=== PATIENT | male | born 1985 | race Caucasian/White ===

== ENCOUNTER → 2017-03-02 | Outpatient (CLI) | payer OTHER ==
--- NOTE | 2017-03-03 01:43 | REP ---
Clinical: Trauma. Fracture fourth digit. Technique: AP, lateral, bilateral oblique views of the right hand. Findings: Findings suggest old healed fracture of the fourth metacarpal bone. No acute fracture dislocation appreciated. Surrounding soft tissues are grossly unremarkable. No subcutaneous emphysema or radiodense foreign body. Impression: Old healed fractures to the fourth metacarpal bone. No acute fracture or dislocation. Signed by Eleno Anders MD 03/03/2017 01:35 A
== END ==
LOC: M WUC 09:25
PROVIDERS: ATTEND Physician Assistant Medical
DX: S62.345D Nondisplaced fracture of base of fourth metacarpal bone, left hand, subsequent encounter for fracture with routine healing (principal); X58.XXXD Exposure to other specified factors, subsequent encounter; Y93.9 Activity, unspecified; Y92.9 Unspecified place or not applicable; Y99.8 Other external cause status

== ENCOUNTER → 2018-03-17 | Outpatient (REF) | payer MEDICAID ==
[2018-03-17 17:26] LABS: PROSTATIC SPECIFIC AG MONITOR 0.36 NG/ML (< 4.0)
[2018-03-17 17:32] LABS: TESTOSTERONE 234 NG/DL (241-827)
== END ==
LOC: M LAB REF 16:35
DX: R79.89 Other specified abnormal findings of blood chemistry (principal)

== ENCOUNTER → 2018-04-29 | Outpatient (CLI) | payer MEDICAID | LOC: M OUTALCOH 08:21 | DX: Z03.89 Encounter for observation for other suspected diseases and conditions ruled out (principal) ==

== ENCOUNTER → 2018-06-08 | Outpatient (CLI) | payer MEDICAID | LOC: M RAD 12:13 | DX: M25.541 Pain in joints of right hand (principal); M85.441 Solitary bone cyst, right hand | CPT/HCPCS: 73100 ==

== ENCOUNTER → 2018-07-15 | Outpatient (CLI) | payer MEDICAID | LOC: M OUTALCOH 12:54 | DX: Z13.39 Encounter for screening examination for other mental health and behavioral disorders (principal) ==

== ENCOUNTER 2018-07-20 13:00 | Outpatient (RCR) | payer MEDICAID | END 2018-08-12 | LOC: M OUTALCOH 07-26 10:00 | DX: F15.20 Other stimulant dependence, uncomplicated (principal); F10.20 Alcohol dependence, uncomplicated ==

== ENCOUNTER → 2018-09-12 | Outpatient (RCR) | payer MEDICAID | LOC: M OUTALCOH 08-17 10:59 | PROVIDERS: ATTEND Psychiatry & Neurology Psychiatry | DX: F15.20 Other stimulant dependence, uncomplicated (principal); F10.20 Alcohol dependence, uncomplicated ==

== ENCOUNTER 2018-10-12 15:00 | Outpatient (RCR) | payer MEDICAID | END 2018-10-13 | LOC: M OUTALCOH 15:00 | PROVIDERS: ATTEND Psychiatry & Neurology Psychiatry | DX: F15.20 Other stimulant dependence, uncomplicated (principal); F10.20 Alcohol dependence, uncomplicated ==

== ENCOUNTER 2018-11-09 15:00 | Outpatient (RCR) | payer MEDICAID | END 2018-11-10 | LOC: M OUTALCOH 15:00 | PROVIDERS: ATTEND Psychiatry & Neurology Psychiatry | DX: F15.20 Other stimulant dependence, uncomplicated (principal); F10.20 Alcohol dependence, uncomplicated ==

== ENCOUNTER → 2018-11-09 | Outpatient (REF) | payer MEDICAID ==
[2018-11-09 19:16] LABS: BASO % 0.3 % (0.0-1.0); EOS # 0.2 10^3/uL (0.0-0.50); EOS % 2.5 % (0.0-3.0); HEMATOCRIT 41.8 % (42.0-52.0); HEMOGLOBIN 14.5 g/dl (13.5-17.5); LYMPH # 2.8 10^3/uL (1.5-4.5); MEAN CORPUSCULAR HEMOGLOBIN 28.2 pg (27.0-33.0); MEAN CORPUSCULAR HGB CONC 34.7 g/dl (32.0-36.5); MEAN CORPUSCULAR VOLUME 81.2 fl (80.0-96.0); MONO # 0.6 10^3/uL (0.0-0.8); MONO % 8.1 % (0.0-5.0); NEUTROPHILS # 3.7 10^3/uL (1.8-7.7); NEUTROPHILS % 50.8 % (36.0-66.0); PLATELET COUNT, AUTOMATED 280 10^3/uL (150-450); RED BLOOD COUNT 5.15 10^6/uL (4.30-6.10); WHITE BLOOD COUNT 7.3 10^3/uL (4.0-10.0)
[2018-11-09 19:34] LABS: ALBUMIN 4.3 GM/DL (3.2-5.2); ALT/SGPT 41 U/L (12-78); BILIRUBIN,TOTAL 0.5 MG/DL (0.2-1.0); BLOOD UREA NITROGEN 10 MG/DL (7-18); CALCIUM LEVEL 8.7 MG/DL (8.5-10.1); CARBON DIOXIDE LEVEL 25 MEQ/L (21-32); CHLORIDE LEVEL 103 MEQ/L (98-107); CREATININE FOR GFR 1.06 MG/DL (0.70-1.30); GLOMERULAR FILTRATION RATE > 60.0 (>60); GLUCOSE, FASTING 94 MG/DL (70-100); PROSTATIC SPECIFIC AG MONITOR 0.56 NG/ML (< 4.00); SODIUM LEVEL 136 MEQ/L (136-145); TOTAL PROTEIN 7.7 GM/DL (6.4-8.2)
[2018-11-09 20:20] LABS: HIV 1&2 SCREEN CENTAUR NEGATIVE (NEGATIVE)
[2018-11-09 22:44] LABS: CHLAMYDIA DNA AMPLIFICATION NEGATIVE (NEGATIVE); GC DNA AMPLIFICATION NEGATIVE (NEGATIVE)
[2018-11-11 09:56] LABS: HEPATITIS B SURFACE ANTIBODY POSITIVE (POSITIVE)
[2018-11-11 10:07] LABS: HEPATITIS B SURFACE ANTIGEN NEGATIVE (NEGATIVE)
[2018-11-11 10:39] LABS: HEPATITIS C VIRUS ABY INDEX > 11.0 INDEX (<0.8)
[2018-11-14 14:10] LABS: HEPATITIS C QUANTITATION HCV Not Detected IU/mL (.)
== END ==
LOC: M LAB REF 18:34
PROVIDERS: ATTEND Family Medicine Addiction Medicine
DX: E29.1 Testicular hypofunction (principal); Z20.2 Contact with and (suspected) exposure to infections with a predominantly sexual mode of transmission

== ENCOUNTER 2018-12-07 11:00 | Outpatient (RCR) | payer MEDICAID | END 2018-12-11 | LOC: M OUTALCOH 11:00 | PROVIDERS: ATTEND Psychiatry & Neurology Psychiatry | DX: F15.20 Other stimulant dependence, uncomplicated (principal); F10.20 Alcohol dependence, uncomplicated ==

== ENCOUNTER 2019-01-09 14:00 | Outpatient (RCR) | payer MEDICAID | END 2019-01-10 | LOC: M OUTALCOH 14:00 | PROVIDERS: ATTEND Psychiatry & Neurology Psychiatry | DX: F15.20 Other stimulant dependence, uncomplicated (principal); F10.20 Alcohol dependence, uncomplicated ==

== ENCOUNTER 2019-01-24 08:00 | Outpatient (RCR) | payer MEDICAID | END 2019-02-10 | LOC: M OUTALCOH 08:00 | PROVIDERS: ATTEND Psychiatry & Neurology Psychiatry | DX: F15.20 Other stimulant dependence, uncomplicated (principal); F10.20 Alcohol dependence, uncomplicated ==

== ENCOUNTER → 2019-09-30 | Outpatient (REF) | payer MEDICAID ==
[2019-10-02 11:20] LABS: CHLAMYDIA DNA AMPLIFICATION NEGATIVE (NEGATIVE); GC DNA AMPLIFICATION POSITIVE (NEGATIVE)
== END ==
LOC: M LAB REF 09:39
PROVIDERS: ATTEND Physician Assistant
DX: Z72.51 High risk heterosexual behavior (principal)

== ENCOUNTER 2020-01-13 01:03 | Inpatient (IN) | payer MEDICAID, SELFPAY ==
[~2020-01-13] VITALS: Ht 175.3 cm; Wt 98.1 kg
[2020-01-13] VITALS (8 sets, daily range): BP systolic 125–143; BP diastolic 62–76
[2020-01-13] MEDS ORDERED: NALOXONE 2MG/2ML SYRINGE (J2310 PER 1MG) As Ordered ONE ×2 (01:11→01:13)
[2020-01-13] MEDS ORDERED: NALOXONE 2MG/2ML SYRINGE (J2310 PER 1MG) IV ONE (01:15)
[2020-01-13] MEDS ORDERED: NS 1,000 ML IV ONE (01:15)
[2020-01-13] MEDS ORDERED: NALOXONE 2MG/2ML SYRINGE (J2310 PER 1MG) IM ONE (01:15)
[2020-01-13 01:53] LABS: VENOUS BASE EXCESS -0.6 (-2.0-2.0); VENOUS HCO3 27.4 MEQ/L (23.0-27.0); VENOUS O2 SATURATION 46.3 % (60.0-80.0); VENOUS PARTIAL PRESSURE CO2 58.7 mmHg (38.0-50.0); VENOUS PARTIAL PRESSURE O2 27.1 mmHg (30.0-50.0); VENOUS PH 7.287 UNITS (7.330-7.430); VENOUS STANDARD HCO3 22.7 MEQ/L; VENOUS TOTAL CO2 29.2 MEQ/L (24.0-28.0)
[2020-01-13 01:54] LABS: BASO % 0.2 % (0.0-1.0); EOS # 0.3 10^3/uL (0.0-0.5); EOS % 3.4 % (0.0-3.0); HEMATOCRIT 45.5 % (42.0-52.0); HEMOGLOBIN 15.3 g/dl (13.5-17.5); LYMPH # 1.8 10^3/uL (1.5-5.0); LYMPH % 20.4 % (24.0-44.0); MEAN CORPUSCULAR HEMOGLOBIN 28.3 pg (27.0-33.0); MEAN CORPUSCULAR HGB CONC 33.6 g/dl (32.0-36.5); MEAN CORPUSCULAR VOLUME 84.3 fl (80.0-96.0); MONO # 0.5 10^3/uL (0.0-0.8); NEUTROPHILS # 6.1 10^3/uL (1.5-8.5); NEUTROPHILS % 69.8 % (36.0-66.0); PLATELET COUNT, AUTOMATED 286 10^3/uL (150-450); WHITE BLOOD COUNT 8.7 10^3/uL (4.0-10.0)
[2020-01-13 02:38] LABS: ACETAMINOPHEN LEVEL < 2.0 UG/ML (10.0-30.0); ALBUMIN 3.8 GM/DL (3.2-5.2); ALT/SGPT 30 U/L (12-78); BILIRUBIN,DIRECT 0.1 MG/DL (0.0-0.2); BILIRUBIN,TOTAL 0.4 MG/DL (0.2-1.0); BLOOD UREA NITROGEN 10 MG/DL (7-18); CALCIUM LEVEL 8.2 MG/DL (8.5-10.1); CARBON DIOXIDE LEVEL 30 MEQ/L (21-32); CHLORIDE LEVEL 107 MEQ/L (98-107); CPK CREATINE PHOSPHOKINASE 262 U/L (39-308); CREATININE FOR GFR 1.14 MG/DL (0.70-1.30); ETHYL ALCOHOL (ETHANOL) < 0.003 % (0.000-0.010); GLOMERULAR FILTRATION RATE > 60.0 (>60); GLUCOSE, FASTING 62 MG/DL (70-100); SALICYLATE LEVEL < 1.7 MG/DL (5.0-30.0); SODIUM LEVEL 142 MEQ/L (136-145); TOTAL PROTEIN 7.1 GM/DL (6.4-8.2)
[2020-01-13 04:15] LABS: AMPHETAMINES LEVEL URINE POSITIVE (NEGATIVE); BARBITURATES URINE NEGATIVE (NEGATIVE); BENZODIAZEPINES URINE NEGATIVE (NEGATIVE); CANNABINOIDS URINE POSITIVE (NEGATIVE); COCAINE METABOLITE URINE POSITIVE (NEGATIVE); METHADONE URINE NEGATIVE (NEGATIVE); OPIATES URINE POSITIVE (NEGATIVE); PHENCYCLIDINE URINE NEGATIVE (NEGATIVE)
[2020-01-13] MEDS ORDERED: ACETAMINOPHEN TAB 650MG DOSE (2X325MG) PO PRN (04:45)
[2020-01-13] MEDS ORDERED: MOM 30ML SUSPENSION UDC PO PRN (04:45)
[2020-01-13] MEDS ORDERED: LORazepam 2 MG TAB PO PRN (04:45)
[2020-01-13] MEDS ORDERED: NS 1,000 ML IV SCH (04:45)
[2020-01-13] MEDS ORDERED: NALOXONE INJ 0.4MG/1ML VIAL (J2310 PER 1MG) IV PRN (04:45)
[2020-01-13] MEDS ORDERED: GLUCOSE 4GM CHEW TABLET PO PRN (05:00)
[2020-01-13] MEDS ORDERED: DEXTROSE 50% 50 ML SYRINGE IV PRN (05:00)
[2020-01-13] MEDS ORDERED: GLUCAGON INJ 1MG VIAL SC PRN (05:00)
[2020-01-13 05:23] LABS: HEMOGLOBIN A1c 5.8 %
[2020-01-13] MEDS ORDERED: NALOXONE INJ 0.4MG/1ML VIAL (J2310 PER 1MG) IV STA (05:43)
--- NOTE | 2020-01-13 05:56 | HPEPDOC ---
[facility] Medical History & Physical Date of Admission January 13, 2020 Date of Service: January 13, 2020 Attending Physician: RENEA BOYD MD History and Physical TIME OF SERVICE: 530AM CHIEF COMPLAINT: confusion HISTORY OF PRESENT ILLNESS: This is a 34 yr old M who was brought to the ER after a friend found him unresponsive after presumed IVDU; his friend gave him narcan; upon arrival in the ER he was alert and responsive but shortly thereafter became lethargic and hypoxic. Despite receiving additional 0.4mg of narcan (for a total of 1.2mg), in the ER the patient continues to have episodes lethargy and hypoxia requiring supplemental O2. At the time of my exam, he was intermittently arousable but kept on falling asleep. He was able to nod his head no when asked if he had any pain and nod urgency head yes when asked if he wanted to be intubated if he needed respiratory support and have CPR if heart stopped. REVIEW OF SYSTEMS: unobtainable bc of AMS PAST MEDICAL/ SURGICAL HISTORY: Per chart review Chronic Hypertension History of collapsed lungs as a SOCIAL HISTORY: + Tobacco, opiates, amphetamines, cocaine, cannabinoids FAMILY HISTORY: Unobtainable ALLERGIES: Please see below. HOME MEDICATIONS: Please see below. PHYSICAL EXAMINATION: Vital Signs Date Time Temp Pulse Resp B/P (MAP) Pulse Ox O2 Delivery O2 Flow Rate FiO2 01/13/20 01:07 99 16 165/100 82 Room Air 01/13/20 01:20 4.0 01/13/20 03:47 96.1 GEN: well-nourished / well developed/ NAD INTEGUMENT: not flushed/ diaphoretic/has tattoos HEENT: mucus membranes dry/ he has mild conjunctival injection CVS: RRR/NMRG LUNGS: Having episodes of hypopnea/inspiratory rhonchi in the left ABDOMEN: Contour (flat) / soft & not tender with palpation NEURO: Pupils are pinpoint PSYCH: Intermittently arousable LABORATORY DATA: Immature Granulocyte % (Auto) 0.2, Neutrophils (%) (Auto) 69.8H, Lymphocytes (%) (Auto) 20.4L, Monocytes (%) (Auto) 6.0H, Eosinophils (%) (Auto) 3.4H, Basophils (%) (Auto) 0.2, Neutrophils # (Auto) 6.1, Lymphocytes # (Auto) 1.8, Monocytes # (Auto) 0.5, Eosinophils # (Auto) 0.3, Basophils # (Auto) 0.0, Nucleated Red Blood Cells % (auto) 0.0, Blood Gas Bicarbonate Standard 22.7, Venous Blood pH 7.287L, Venous Blood Partial Pressure CO2 58.7H, Venous Blood Partial Pressure O2 27.1L, Venous Blood Total Carbon Dioxide 29.2H, Venous Blood HCO3 27.4H, Venous Blood Oxygen Saturation 46.3L, Venous Blood Base Excess -0.6, Anion Gap 5L, Glomerular Filtration Rate > 60.0, Estimated Mean Plasma Glucose 120H, Hemoglobin A1c 5.8, Calcium Level 8.2L, Total Bilirubin 0.4, Direct Bilirubin 0.1, Aspartate Amino Transf (AST/SGOT) 25, Alanine Aminotransferase (ALT/SGPT) 30, Alkaline Phosphatase 73, Total Creatine Kinase 262, Total Protein 7.1, Albumin 3.8, Albumin/Globulin Ratio 1.15, Thyroid Stimulating Hormone (TSH) 2.690, Salicylates Level < 1.7L, Acetaminophen Level < 2.0L, Ethyl Alcohol Level < 0.003 01/13/20 01:42: POC pH (Misc Panel) 7.345L, POC Base Excess (Misc Panel) -1.0, POC Saturated Percent O2 (Misc) 86L, POC pO2 (Misc Panel) 55.0L, POC pCO2 (Misc Panel) 45.3H, POC HCO3 (Misc Panel) 24.7, POC Total CO2 (Misc Panel) 26.0 01/13/20 03:43: Urine Opiates Screen POSITIVEH, Urine Methadone Screen NEGATIVE, Urine Barbiturates Screen NEGATIVE, Urine Phencyclidine Screen NEGATIVE, Urine Amphetamines Screen POSITIVEH, Urine Benzodiazepines Screen NEGATIVE, Urine Cocaine Metabolite Screen POSITIVEH, Urine Cannabinoids Screen POSITIVEH 01/13/20 05:07: Bedside Glucose (Misc Panel) 100 IMAGING: Chest x-ray appears to be a lesion on the left side of the chest, but the final read is pending MICROBIOLOGY: Please see below. ASSESSMENT: Mr. Koch is a 34-year-old with history of polysubstance abuse who will be admitted for management of polysubstance induced encephalopathy and hypoxia is possibly due to aspiration pneumonitis. PLAN: 1. Polysubstance induced encephalitis / Drug OD UDS + for opiates, amphetamines, cocaine, and cannabinoids Plan: Admit to PCU/neurochecks / narcan PRN for AMS associated w hypopnea 2. Hypoxia possibly 2/2 aspiration pneumonitis VBG showed PO2 of 21 Plan: Supplemental oxygen/continuous pulse oximetry/will hold off antibiotics for now/monitor for SIRS 3. Polysubstance abuse Plan: IV fluids/fall precautions/seizure precautions/Ativan per [facility] protocol 4. Hypoglycemia Cause TBD He has ketones in the urine. Plan: D5NS / f/u accuchecks 5. Obesity w BMI of 30.1 Complicates care. Plan: f/u A1C / the pt can f/u w his PCP for STOP BANG questionnaire, grade foreman consult DVT PROPHYLAXIS: SCDs DISPOSITION: Likely home after more than 2 midnight's stay Home Medications No Active Prescriptions or Reported Meds Allergies Coded Allergies: No Known Drug Allergies (Verified Allergy, Unknown, 01/13/20) A-FIB/CHADSVASC A-FIB History Current/History of A-Fib/PAF?: No Current PO Anticoag Therapy: No RENEA BOYD MD January 13, 2020 05:56
[2020-01-13] MEDS: D5W/0.9% SODIUM CHLORIDE 1,000 ML IV SCH ×3 (06:14→20:37)
--- NOTE | 2020-01-13 06:39 | ECGEPIP ---
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
--- NOTE | 2020-01-13 08:13 | REP ---
Clinical: Hypoxia. Overdose. Technique: Portable semiupright view of the chest. Findings: Diffuse primarily left-sided and right upper lobe alveolar infiltrates are appreciated. No effusion. No pneumothorax. Mediastinum and cardiac silhouette are normal. Skeletal structures are intact. Impression: Multifocal pneumonitis (left greater than right). Electronically Signed by Eleno Anders MD 01/13/2020 08:05 A
[2020-01-13] MEDS: THIAMINE 100 MG TAB PO SCH ×2 (08:59→20:37)
[2020-01-13] MEDS: MULTIVITAMINS/MINERALS THERAP 1 TAB PO SCH (08:59)
[2020-01-13] MEDS: FOLIC ACID 1 MG TAB PO SCH (08:59)
--- NOTE | 2020-01-13 15:22 | IPNPDOC ---
Text Note Date of Service The patient was seen on 01/13/20. NOTE Subjective: -Sleepy, reports feeling tired, no other complaints at this time Objective: GEN: NAD, well nourished, drowsy, awake on voice HEENT: NCAT, PERRLA, EOMI, MMM CVS: RRR, no mrg LUNGS: CTAB, no crackles, wheezing or rhonchi ABDOMEN: Normoactive, soft, NTND NEURO: AOx3, CN2-12 grossly intact, moving all extremities PSYCH: AOx3 LABORATORY DATA: reviewed IMAGING: CXR: Diffuse primarily left-sided and right upper lobe alveolar infiltrates are appreciated. No effusion. No pneumothorax. Mediastinum and cardiac silhouette are normal. Skeletal structures are intact. ASSESSMENT: Mr. Koch is a 34-year-old with history of polysubstance abuse who was admitted for management of polysubstance induced encephalopathy and hypoxemic respiratory failure 2/2 aspiration pneumonitis while encephalopathic. PLAN: 1. Polysubstance induced encephalopathy 2/2 multidrug overdose -Utox was positive for opiates, amphetamines, cocaine, and cannabinoids -Was admitted to the ICU with frequent neurochecks, narcan PRN for AMS associated w hypopnea, now resolved. 2.Hypoxemic respiratory failure 2/2 aspiration pneumonitis: resolved hypoxemia -Required supplemental O2, now weaned to room air -monitor for possibility of developing aspiration PNA 3. Polysubstance abuse -on IV fluids, D5NS, to DC once he tolerates a regular diet -fall precautions/seizure precautions/Ativan per CIWA protocol 4. Hypoglycemia: resolved -Had starvation ketosis on admission -dc accuchecks DVT PROPHYLAXIS: SCDs DISPOSITION: Transfer to [facility] [place], I+O [facility], I+O Laboratory Tests 01/13/20 01:25 Vital Signs Date Time Temp Pulse Resp B/P (MAP) Pulse Ox O2 Delivery O2 Flow Rate FiO2 01/13/20 14:07 142/67 (92) 01/13/20 10:01 69 94 Room Air 01/13/20 09:00 1.0 01/13/20 07:01 98.1 17 I&O- Last 24 Hours up to 6 AM 01/13/20 06:00 Intake Total 1000 ml Balance 1000 ml MARGARET MCKEON MD January 13, 2020 15:22
[2020-01-14 06:00] VITALS: BP_SYST 135; BP_SYST 136; BP_DIAS 73
[2020-01-14 06:58] LABS: HEMATOCRIT 39.3 % (42.0-52.0); HEMOGLOBIN 13.4 g/dl (13.5-17.5); MEAN CORPUSCULAR HEMOGLOBIN 28.8 pg (27.0-33.0); MEAN CORPUSCULAR HGB CONC 34.1 g/dl (32.0-36.5); MEAN CORPUSCULAR VOLUME 84.5 fl (80.0-96.0); PLATELET COUNT, AUTOMATED 248 10^3/uL (150-450); RED BLOOD COUNT 4.65 10^6/uL (4.30-6.10); WHITE BLOOD COUNT 7.5 10^3/uL (4.0-10.0)
[2020-01-14 07:03] LABS: BLOOD UREA NITROGEN 8 MG/DL (7-18); CALCIUM LEVEL 8.1 MG/DL (8.5-10.1); CARBON DIOXIDE LEVEL 26 MEQ/L (21-32); CHLORIDE LEVEL 107 MEQ/L (98-107); CREATININE FOR GFR 0.77 MG/DL (0.70-1.30); GLOMERULAR FILTRATION RATE > 60.0 (>60); GLUCOSE, FASTING 89 MG/DL (70-100); POTASSIUM SERUM 3.9 MEQ/L (3.5-5.1); SODIUM LEVEL 139 MEQ/L (136-145)
[2020-01-14] MEDS: D5W/0.9% SODIUM CHLORIDE 1,000 ML IV SCH ×2 (08:25→08:34)
[2020-01-14] MEDS: MULTIVITAMINS/MINERALS THERAP 1 TAB PO SCH (08:34)
[2020-01-14] MEDS: THIAMINE 100 MG TAB PO SCH (08:34)
[2020-01-14] MEDS: FOLIC ACID 1 MG TAB PO SCH (08:34)
--- NOTE | 2020-01-14 11:22 | DS.PDOC ---
Discharge Summary General Date of Admission January 13, 2020 at 04:40 Date of Discharge 01/14/2020 Attending Physician: MARGARET MCKEON MD Discharge Summary PROCEDURES PERFORMED DURING STAY: None ADMITTING DIAGNOSES: 1. Aspiration pneumonitis in the setting of multi-illicit drug intoxication DISCHARGE DIAGNOSES: 1. Aspiration pneumonitis 2. Hypoxemic respiratory failure 3. Accidental drug overdose 4. PSUD 5. History of chronic essential hypertension COMPLICATIONS/CHIEF COMPLAINT: Aspiration Pneumonitis. HISTORY OF PRESENT ILLNESS: 34 yr old M who was brought to the ER after a friend found him unresponsive after presumed IVDU and his friend administered him narcan. HOSPITAL COURSE: Upon arrival in the ER he was alert and responsive but shortly thereafter became lethargic and hypoxemic, and received a total of 1.2mg with continued lethargy and hypoxemia requiring supplemental O2. his workup was notable for urine toxicology screen that was positive for +opiates, amphetamines, cocaine, cannabinoids. He was admitted to the ICU for close monitoring with continuous pulse oximetry and telemetry and made NPO with imaging showing diffuse pneumonitis. By day 2 morning, he was more awake, asking for water and food, hypoxemia resolved and he was transferred to the floor where he continued to improve and was on CIWA protocol without evidence of withdrawal and reporting rare alcohol use with the last alcohol consumptions being weeks prior. He is now being discharged home with follow up with addiction medicine/behavioral health contacts to seek outpatient treatment and follow up at [facility] as well as PCP follow up. DISCHARGE MEDICATIONS: Please see below. ALLERGIES: Please see below. PHYSICAL EXAMINATION ON DISCHARGE: VITAL SIGNS: Please see below. GEN: NAD, well nourished, drowsy, awake on voice HEENT: NCAT, PERRLA, EOMI, MMM CVS: RRR, no mrg LUNGS: CTAB, no crackles, wheezing or rhonchi ABDOMEN: Normoactive, soft, NTND NEURO: AOx3, CN2-12 grossly intact, moving all extremities PSYCH: AOx3 LABORATORY DATA: reviewed IMAGING: CXR: Diffuse primarily left-sided and right upper lobe alveolar infiltrates are appreciated. No effusion. No pneumothorax. Mediastinum and cardiac silhouette are normal. Skeletal structures are intact. PROGNOSIS: Good with abstaining from multi-illicit drug use and enrolling in outpatient treatment ACTIVITY: As tolerated DIET: Regular DISCHARGE PLAN: Home with contacts to behavioral health and addiction clinic DISPOSITION: Home DISCHARGE INSTRUCTIONS: 1. Please refrain from taking illicit drugs as they have deleterious effects on your health. ITEMS TO FOLLOWUP ON ON OUTPATIENT: 1. PSUD DISCHARGE CONDITION: Stable TIME SPENT ON DISCHARGE: 34 minutes. Vital Signs/I&Os Vital Signs Date Time Temp Pulse Resp B/P (MAP) Pulse Ox O2 Delivery O2 Flow Rate FiO2 01/14/20 06:00 97.1 61 15 135/73 (93) 94 Room Air 01/13/20 09:00 1.0 I&O- Last 24 Hours up to 6 AM 01/14/20 06:00 Intake Total 3345 ml Output Total 450 ml Balance 2895 ml Laboratory Data Labs 24H Laboratory Tests 2 01/14/20 06:25: Nucleated Red Blood Cells % (auto) 0.0, Anion Gap 6L, Glomerular Filtration Rate > 60.0, Calcium Level 8.1L, Magnesium Level 2.0 CBC/BMP Laboratory Tests 01/14/20 06:25 Discharge Medications No Active Prescriptions or Reported Meds Allergies Coded Allergies: No Known Drug Allergies (Verified Allergy, Unknown, 01/13/20) MARGARET MCKEON MD January 14, 2020 09:38
== END 2020-01-14 12:15 | disposition home health service (06) | DRG 812 ==
LOC: EDBD 01:03 → M ED 01:03 → M ED INP 04:40 → ENRESERV 04:56 → M ICU 06:50 → M MSPAV 16:53
PROVIDERS: ADMIT Internal Medicine; ATTEND Internal Medicine
DX: T40.2X1A Poisoning by other opioids, accidental (unintentional), initial encounter (principal); J69.0 Pneumonitis due to inhalation of food and vomit; G92 Toxic encephalopathy; E88.89 Other specified metabolic disorders; T40.7X1A Poisoning by cannabis (derivatives), accidental (unintentional), initial encounter; T40.5X1A Poisoning by cocaine, accidental (unintentional), initial encounter; E66.9 Obesity, unspecified; E16.2 Hypoglycemia, unspecified; I10 Essential (primary) hypertension; F17.200 Nicotine dependence, unspecified, uncomplicated

== ENCOUNTER 2020-02-27 04:38 | Emergency (ER) | payer SELFPAY ==
[~2020-02-27] VITALS: Ht 175.3 cm; Wt 92.4 kg
[2020-02-27 04:40] VITALS: BP 171/101
[2020-02-27] MEDS ORDERED: NS 1,000 ML IV ONE (05:00)
[2020-02-27] MEDS ORDERED: ONDANSETRON 4MG/2ML VIAL As Ordered ONE (05:03)
[2020-02-27] MEDS ORDERED: ONDANSETRON 4MG/2ML VIAL IV ONE (05:15)
[2020-02-27 05:27] LABS: BASO % 0.2 % (0.0-1.0); EOS # 0.2 10^3/uL (0.0-0.5); EOS % 2.1 % (0.0-3.0); HEMATOCRIT 47.1 % (42.0-52.0); HEMOGLOBIN 15.3 g/dl (13.5-17.5); LYMPH # 2.8 10^3/uL (1.5-5.0); LYMPH % 29.2 % (24.0-44.0); MEAN CORPUSCULAR HEMOGLOBIN 27.7 pg (27.0-33.0); MEAN CORPUSCULAR HGB CONC 32.5 g/dl (32.0-36.5); MEAN CORPUSCULAR VOLUME 85.3 fl (80.0-96.0); MONO # 0.6 10^3/uL (0.0-0.8); MONO % 6.4 % (0.0-5.0); NEUTROPHILS # 5.9 10^3/uL (1.5-8.5); NEUTROPHILS % 61.5 % (36.0-66.0); PLATELET COUNT, AUTOMATED 274 10^3/uL (150-450); RED BLOOD COUNT 5.52 10^6/uL (4.30-6.10); WHITE BLOOD COUNT 9.7 10^3/uL (4.0-10.0)
[2020-02-27 05:58] LABS: ACETAMINOPHEN LEVEL < 2.0 UG/ML (10.0-30.0); ALBUMIN 3.9 GM/DL (3.2-5.2); ALT/SGPT 25 U/L (12-78); BILIRUBIN,DIRECT 0.1 MG/DL (0.0-0.2); BILIRUBIN,TOTAL 0.3 MG/DL (0.2-1.0); BLOOD UREA NITROGEN 15 MG/DL (7-18); CALCIUM LEVEL 8.6 MG/DL (8.5-10.1); CARBON DIOXIDE LEVEL 24 MEQ/L (21-32); CHLORIDE LEVEL 108 MEQ/L (98-107); CPK CREATINE PHOSPHOKINASE 226 U/L (39-308); ETHYL ALCOHOL (ETHANOL) 0.003 % (0.000-0.010); GLOMERULAR FILTRATION RATE > 60.0 (>60); GLUCOSE, FASTING 94 MG/DL (70-100); POTASSIUM SERUM 4.2 MEQ/L (3.5-5.1); SALICYLATE LEVEL 2.3 MG/DL (5.0-30.0); SODIUM LEVEL 141 MEQ/L (136-145); TOTAL PROTEIN 7.5 GM/DL (6.4-8.2)
--- NOTE | 2020-02-27 06:38 | ECGEPIP ---
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
== END 2020-02-27 05:26 | disposition left against medical advice (07) ==
LOC: M ED 04:38
DX: F11.129 Opioid abuse with intoxication, unspecified (principal); F19.10 Other psychoactive substance abuse, uncomplicated; F17.200 Nicotine dependence, unspecified, uncomplicated
CPT/HCPCS: 80048; 80076; 82550; 84443; 85025; 93005; 93041; 94760; 96374; 99284; G0480; J2405

== ENCOUNTER → 2020-07-02 | Outpatient (CLI) | payer MEDICAID ==
[~2020-07-02] MED LIST: BENA25CA4 PO; CLON0.2D6 PO; CLON0.3T PO; PRED10TA2 PO
[2020-07-02 13:20] LABS: BASO % 0.2 % (0.0-1.0); EOS # 0.1 10^3/uL (0.0-0.5); EOS % 1.5 % (0.0-3.0); HEMOGLOBIN 14.2 g/dl (13.5-17.5); LYMPH # 2.2 10^3/uL (1.5-5.0); LYMPH % 26.6 % (24.0-44.0); MEAN CORPUSCULAR HEMOGLOBIN 26.9 pg (27.0-33.0); MEAN CORPUSCULAR VOLUME 81.6 fl (80.0-96.0); MONO # 0.6 10^3/uL (0.0-0.8); MONO % 6.7 % (0.0-5.0); NEUTROPHILS # 5.3 10^3/uL (1.5-8.5); NEUTROPHILS % 64.6 % (36.0-66.0); PLATELET COUNT, AUTOMATED 279 10^3/uL (150-450); RED BLOOD COUNT 5.27 10^6/uL (4.30-6.10); WHITE BLOOD COUNT 8.2 10^3/uL (4.0-10.0)
[2020-07-02 13:51] LABS: ALBUMIN 4.4 GM/DL (3.2-5.2); ALT/SGPT 69 U/L (12-78); BILIRUBIN,TOTAL 0.4 MG/DL (0.2-1.0); BLOOD UREA NITROGEN 18 MG/DL (7-18); CARBON DIOXIDE LEVEL 29 MEQ/L (21-32); CHLORIDE LEVEL 106 MEQ/L (98-107); CREATININE FOR GFR 1.16 MG/DL (0.70-1.30); GLOMERULAR FILTRATION RATE > 60.0 (>60); GLUCOSE, FASTING 100 MG/DL (70-100); POTASSIUM SERUM 4.1 MEQ/L (3.5-5.1); SODIUM LEVEL 139 MEQ/L (136-145); TOTAL PROTEIN 7.9 GM/DL (6.4-8.2)
[2020-07-02 13:53] LABS: APPEARANCE, URINE CLEAR (CLEAR); BACTERIA, URINE AUTO NEGATIVE (NEGATIVE); BILIRUBIN, URINE AUTO NEGATIVE (NEGATIVE); BLOOD, URINE BLOOD NEGATIVE (NEGATIVE); COLOR, URINE YELLOW (YELLOW); GLUCOSE, URINE (UA) AUTO NEGATIVE (NEGATIVE); KETONE, URINE AUTO NEGATIVE (NEGATIVE); LEUKOCYTE ESTERASE, URINE AUTO NEGATIVE (NEGATIVE); MUCUS, URINE SMALL (NEGATIVE); NITRITE, URINE AUTO NEGATIVE (NEGATIVE); PROTEIN, URINE AUTO NEGATIVE (NEGATIVE); RBC, URINE AUTO 3 /HPF (0-3); SPECIFIC GRAVITY URINE AUTO 1.024 (1.002-1.035); SQUAMOUS EPITHELIAL CELL UR AU 0 /HPF (0-6); UROBILINOGEN, URINE AUTO 0.2 mg/dL (0.0-2.0); WBC, URINE AUTO 0 /HPF (0-3)
[2020-07-02 14:01] LABS: TESTOSTERONE 329 NG/DL (241-827)
[2020-07-02 14:13] LABS: HEPATITIS B SURFACE ANTIGEN NEGATIVE (NEGATIVE)
[2020-07-02 14:40] LABS: HEPATITIS B CORE ANTIBODY IGM NEGATIVE (NEGATIVE)
[2020-07-02 14:42] LABS: HEPATITIS A ANTIBODY IGM NEGATIVE (NEGATIVE)
[2020-07-02 14:59] LABS: HEPATITIS C VIRUS ABY INDEX > 11.0 INDEX (<0.8)
== END ==
LOC: M LAB 11:33
PROVIDERS: ATTEND Physician Assistant Medical
DX: Z02.2 Encounter for examination for admission to residential institution (principal)

== ENCOUNTER 2020-07-05 19:16 | Emergency (ER) | payer MEDICAID, OTHER ==
[~2020-07-05] VITALS: Ht 172.7 cm; Wt 95.9 kg
[2020-07-05 19:16] VITALS: BP 140/70
[2020-07-05] MEDS ORDERED: CLON0.2D6 PO (19:25)
[2020-07-05] MEDS ORDERED: CLON0.3T PO (19:26)
[2020-07-05] MEDS ORDERED: PRED10TA2 PO (20:59)
[2020-07-05] MEDS ORDERED: BENA25CA4 PO (20:59)
[2020-07-05] MEDS ORDERED: predniSONE 20 MG TAB PO ONE (21:00)
== END 2020-07-05 21:15 | disposition home or self-care (01) ==
LOC: M ED 19:16
DX: L71.9 Rosacea, unspecified (principal); I10 Essential (primary) hypertension; Z79.899 Other long term (current) drug therapy

== ENCOUNTER → 2020-07-08 | Outpatient (CLI) | payer MEDICAID ==
[2020-07-08 12:12] LABS: HEPATITIS B SURFACE ANTIBODY POSITIVE (POSITIVE); HEPATITIS B SURFACE ANTIGEN NEGATIVE (NEGATIVE)
[2020-07-11 23:07] LABS: HEPATITIS A IgG TOTAL Positive (Negative)
== END ==
LOC: M LAB 10:37
PROVIDERS: ATTEND Physician Assistant Medical
DX: B18.2 Chronic viral hepatitis C (principal); B16.9 Acute hepatitis B without delta-agent and without hepatic coma; B15.9 Hepatitis A without hepatic coma

== ENCOUNTER → 2020-11-07 | Outpatient (REF) | payer OTHER ==
[2020-11-07 18:33] LABS: BASO % 0.3 % (0.0-1.0); EOS # 0.2 10^3/uL (0.0-0.5); HEMATOCRIT 45.5 % (42.0-52.0); HEMOGLOBIN 15.2 g/dl (13.5-17.5); LYMPH # 2.5 10^3/uL (1.5-5.0); LYMPH % 41.4 % (24.0-44.0); MEAN CORPUSCULAR HGB CONC 33.4 g/dl (32.0-36.5); MEAN CORPUSCULAR VOLUME 83.9 fl (80.0-96.0); MONO # 0.5 10^3/uL (0.0-0.8); MONO % 8.2 % (2.0-8.0); NEUTROPHILS # 2.8 10^3/uL (1.5-8.5); NEUTROPHILS % 46.9 % (36.0-66.0); PLATELET COUNT, AUTOMATED 234 10^3/uL (150-450); RED BLOOD COUNT 5.42 10^6/uL (4.30-6.10); WHITE BLOOD COUNT 5.9 10^3/uL (4.0-10.0)
[2020-11-07 18:51] LABS: ALBUMIN 4.7 GM/DL (3.2-5.2); ALT/SGPT 28 U/L (12-78); BILIRUBIN,TOTAL 0.5 MG/DL (0.2-1.0); BLOOD UREA NITROGEN 21 MG/DL (7-18); CALCIUM LEVEL 9.3 MG/DL (8.5-10.1); CARBON DIOXIDE LEVEL 26 MEQ/L (21-32); CHLORIDE LEVEL 107 MEQ/L (98-107); CHOLESTEROL LEVEL 192 MG/DL (<200); GLOMERULAR FILTRATION RATE > 60.0 (>60); GLUCOSE, FASTING 87 MG/DL (70-100); HDL CHOLESTEROL 48 MG/DL (>40); LDL CHOLESTEROL 120 MG/DL (<100); NON-HDL-C 144 MG/DL; POTASSIUM SERUM 4.5 MEQ/L (3.5-5.1); PROSTATIC SPECIFIC AG MONITOR 0.46 NG/ML (< 4.00); SODIUM LEVEL 139 MEQ/L (136-145); TESTOSTERONE 377 NG/DL (241-827); TOTAL PROTEIN 7.4 GM/DL (6.4-8.2); TRIGLYCERIDES LEVEL 118 MG/DL (<150)
== END ==
LOC: M LAB REF 16:37
PROVIDERS: ATTEND Family Medicine Addiction Medicine
DX: I10 Essential (primary) hypertension (principal); E29.1 Testicular hypofunction

== ENCOUNTER 2021-06-25 12:08 | Emergency (ER) | payer OTHER ==
[~2021-06-25] VITALS: Ht 175.3 cm; Wt 92.9 kg
[2021-06-25 12:09] VITALS: BP 158/84
[2021-06-25] MEDS ORDERED: SERT50TA29 (12:17)
[2021-06-25] MEDS ORDERED: NALT50TA4 (12:17)
--- OUTSIDE RECORDS SUMMARY | 2021-06-25 12:19 | CCD ---
Author Organization Unknown Address [address] [place] [address] Phone [phone] Care Team Providers Care Checkering Machine Adjuster Name Role Phone TorrezEddy Unavailable Unavailable Allergies Code Code System Name Reaction Severity Status Onset NKDA Medications Name Status Start Date Stop Date albuterol sulfate HFA 90 mcg/actuation aerosol inhaler Active Not available azithromycin 500 mg tablet TAKE 2 TABLET BY MOUTH ONCE Completed 10/17/2020 bupropion HCl XL 150 mg 24 hr tablet, ex tended release TAKE ONE TABLET BY MOUTH EVERY MORNING Active Not available clonidine HCl 0.2 mg tablet TAKE ONE TABLET BY MOUTH AT BEDTIME Active Not available naltrexone 50 mg tablet TAKE ONE TABLET BY MOUTH ONCE DAILY Active Not available naproxen 500 mg tablet Active Not avail able nicotine (polacrilex) 4 mg gum Active N ot available sertraline 25 mg tablet Active Not avai lable sertraline 50 mg tablet TAKE ONE TABLET BY MOUTH EVERY MORNING Active Not available Vivitrol 380 mg intramuscular suspension,extended release Comple nelsy 02/05/2021 Wellbutrin SR 100 mg tablet, 12 hr susta ined-release Take 1 tablet twice a day by oral route. Active Not available Problems Name Status Onset Date Source Opioid Dependence in Remission Active 02/22/2018 H istory Hepatitis C Carrier Active 03/01/2018 History Arteriopathic Impotence Active 03/01/2018 History Clinical Finding Active 03/17/2018 History Hypertensive Disorder Active 05/11/2018 History Joint Pain in Right Hand Active 05/25/2018 History Dental Anglican Present Active 06/13/2018 Histo ry Dental Arch Length Loss Secondary to Dental Caries Active 06/13/2018 History Testicular Hypofunction Active 07/29/2018 History Tobacco Dependence Syndrome Active 09/14/2018 Hist ory Disorder of Skin of Head Active 09/14/2018 History Exposure to Sexually Transmissible Disorder Active 10/15 History Tobacco Use and Exposure - Finding Active 11/22/2018 History Dental Caries on Smooth Surface Penetrating into Dentin Active 12/21/2018 History Low Back Pain Active 10/17/2020 Hemorrhoids Active 11/22/2020 Undescended Testicle Active 11/22/2020 Procedures Notes: No known surgical history Results Lab Results Date Name Specimen Result Interpretation Description Value Range Status Address 11/07/2020 CBC W/ Auto Diff Normal White Blood Count 5.9 10 4.0-10.0 10 [facility]: [address] [place] [address] Normal Red Blood Count 5.42 10 4.30-6.10 10 [facility]: [address] [place] [address] Normal Hemoglobin 15.2 g/dL 13.5-17.5 g/dL [facility]: [address] [place] [address] Normal Hematocrit 45.5 % 42.0-52.0 % [facility]: [address] [place] [address] Normal Mean Corpuscular Volume 83.9 fL 80.0 -96.0 fL [facility]: [address] [place] [address] Normal Mean Corpuscular Hemoglobin 28.0 pg 27.0-33.0 pg [facility]: [address] [place] [address] Normal Mean Corpuscular HGB Conc 33.4 g/dL 32.0-36.5 g/dL [facility]: 0 [facility] Normal Red Cell Distribution Width 13.0 % 1 1.5-14.5 % [facility]: [address] [place] [address] Normal Platelet Count, Automated 234 10 150 -450 10 [facility]: 0 [facility] Normal Neutrophils % 46.9 % 36.0-66.0 % [facility]: [address] [facility] Normal Lymph % 41.4 % 24.0-44.0 % [facility]: [address] [facility] High [place] % 8.2 % 2.0-8.0 % [facility]: [address] [facility] Normal Eos % 3.0 % 0.0-3.0 % [facility]: [address] [facility] Normal Baso % 0.3 % 0.0-1.0 % [facility]: [address] [facility] Normal Immature Granulocyte % 0.2 % 0-3.0 % [facility]: [address] [facility] Normal Nucleated Red Blood Cell % 0.0 % 0- 0 % [facility]: [address] [facility] Normal Neutrophils # 2.8 10 1.5-8.5 10 [facility]: [address] [facility] Normal Lymph # 2.5 10 1.5-5.0 10 [facility]: [address] [facility] Normal [place] # 0.5 10 0.0-0.8 10 [facility]: [address] [facility] Normal Eos # 0.2 10 0.0-0.5 10 [facility]: [address] [facility] Normal Baso # 0.0 10 0.0-0.2 10 [facility]: [address] [facility] 11/07/2020 CMP, Serum or Plasma Normal Glucose, Fastin g 87 mg/dL 70-100 mg/dL [facility]: 83 0 [facility] High Blood Urea Nitrogen 21 mg/dL 7-18 mg /dL [facility]: 0 [facility] Normal Creatinine for GFR 1.10 mg/dL 0.70-1 .30 mg/dL [facility]: 0 [facility] Normal Glomerular Filtration Rate > 60.0 >6 0 [facility]: [address] [facility] Normal Sodium Level 139 mEq/L 136-145 mEq/L [facility]: 0 [facility] Normal Potassium Serum 4.5 mEq/L 3.5-5.1 mE q/L [facility]: 0 [facility] Normal Chloride Level 107 mEq/L 98-107 mEq/ L [facility]: 0 [facility] Normal Carbon Dioxide Level 26 mEq/L 21-32 mEq/L [facility]: 0 [facility] Low Anion Gap 6 mEq/L 8-16 mEq/L [facility]: [address] [facility] Normal Calcium Level 9.3 mg/dL 8.5-10.1 mg/ dL [facility]: [address] [facility] Normal AST/SGOT 13 U/L 7-37 U/L [facility]: 8[address] [facility] Normal ALT/SGPT 28 U/L 12-78 U/L Final [facility]: [address] [facility] Normal Alkaline Phosphatase 55 U/L 45-117 U /L [facility]: [address] [facility] Normal Bilirubin,total 0.5 mg/dL 0.2-1.0 mg /dL [facility]: 8[address] [facility] Normal Total Protein 7.4 gm/dL 6.4-8.2 gm/d L [facility]: [address] [facility] Normal Albumin 4.7 gm/dL 3.2-5.2 gm/dL [facility]: 8[address] [facility] Normal Albumin/globulin Ratio 1.7 [facility]: [address] [facility] 11/07/2020 Lipid Panel, Blood Normal Triglycerides Lev el 118 mg/dL <150 mg/dL [facility]: 83 0 [facility] Normal Cholesterol Level 192 mg/dL <200 mg/ dL [facility]: [address] [facility] Normal HDL Cholesterol 48 mg/dL >40 mg/dL [facility]: [address] [facility] High LDL Cholesterol 120 mg/dL <100 mg/dL [facility]: [address] [facility] Normal Non-hdl-c 144 mg/dL [facility]: [address] [facility] Normal Cholesterol Risk Ratio 4.000 <5 [facility]: [address] [facility] 11/07/2020 Testosterone, Total, Serum Normal Testoster one 377 NG/dL 241- 827 NG/dL [facility]: 83 0 [facility] 11/07/2020 PSA, Serum or Plasma Normal Prostat ic Specific Ag Monitor 0.46 NG/mL < 4.00 NG/mL Final [facility]: [address] [facility] 11/07/2020 TSH, Serum or Plasma Normal Thyroid Stimulating Hormone 2.770 uIU/mL 0.358-3.740 uIU/mL Final [facility]: 8[address] [facility] Past Encounters 04/30/2021 Low Back Pain Eddy Torrez MD: [address] [place] [phone], Ph. 02/05/2021 Low Back Pain; Hemorrhoids; Opioid Dependence in Remission; Testicular Hypofunction Eddy Torrez MD: [address] [place] [phone], Ph. 11/22/2020 Undescended Testicle; Low Back Pain; Hemorrhoids; Opioid Dependence in Remission Eddy Torrez MD: [address] [place] [phone], Ph. 11/07/2020 [facility]-: [address] [place] [phone], Ph. 10/17/2020 Hypertensive Disorder; Opioid Dependence in Remission; Adult Health Examination; Testicular Hypofunction; Low Back Pain Eddy Torrez MD: [address] [place] [phone], Ph. 10/08/2020 SARS-CoV-2 Vaccination Aurea Gallegos [facility]: [address] [place] [phone], Ph. 09/10/2020 SARS-CoV-2 Vaccination Eddy Torrez MD: [address] [place] [phone], Ph. Social History Tobacco Smoking Status Former Smoker Vaccine List Vaccine Type COVID-19, mRNA, LNP-S, PF, 100 mcg/0.5 m L dose .5 mL .5 mL Plan of Care Reminders Provider Appointments None recorded. Lab None recorded. Referral None recorded. Procedures None recorded. Surgeries None recorded. Imaging None recorded. Vitals 04/30/2021 10:20AM ESTABLISHED [id number] Height Weight BMI Blood Pressure 69 in 204 lbs 8 oz 30.2 kg/m2 134/84 mm[Hg] 02/05/2021 11:00AM SAME DAY 20 Height Weight BMI Blood Pressure 69 in 202 lbs 4 oz 29.9 kg/m2 138/99 mm[Hg] 11/22/2020 09:00AM ESTABLISHED [id number] Height Weight BMI Blood Pressure 69 in 222 lbs 2 oz 32.8 kg/m2 128/73 mm[Hg] 10/17/2020 11:20AM NEW PATIENT (13yrs - OLDER) Height Weight BMI Blood Pressure 69 in 218 lbs 2 oz 32.2 kg/m2 146/77 mm[Hg] 11/23/2018 Height Weight BMI Blood Pressure 69.75 in 205 lbs 4 oz 29.77 kg/m2 141/88 mm[Hg] 11/22/2018 Blood Pressure 148/94 mm[Hg] 11/09/2018 Height Weight BMI Blood Pressure 69.75 in 205 lbs 8 oz 29.81 kg/m2 158/97 mm[Hg] 11/02/2018 Height Weight BMI Blood Pressure 69.75 in 205 lbs 6.08 oz 29.79 kg/m2 155/90 mm[H g] 10/12/2018 Height Weight BMI Blood Pressure 69.75 in 210 lbs 30.46 kg/m2 133/75 mm[Hg] 09/28/2018 Height Weight BMI Blood Pressure 69.75 in 205 lbs 2.08 oz 29.75 kg/m2 120/79 mm[H g] 09/14/2018 Height Weight BMI Blood Pressure 69.75 in 201 lbs 4.96 oz 29.20 kg/m2 121/79 mm[H g]
--- OUTSIDE RECORDS SUMMARY | 2021-06-25 12:19 | CCD ---
Author Author [facility] Organization [facility] Address Unknown Phone Unavailable Care Team Providers Care Dairy Helper Name Role Phone Elza Torrez MD Unavailable Unavailable Elza Torrez MD Unavailable Unavailable Elza Torrez MD Unavailable Unavailable Elza Torrez MD Unavailable Unavailable Elza Torrez MD Unavailable Unavailable Elza Torrez MD Unavailable Unavailable Elza Torrez MD Unavailable Unavailable Elza Torrez MD Unavailable Unavailable Elza Torrez MD Unavailable Unavailable Elza Torrez MD Unavailable Unavailable Elza Torrez MD Unavailable Unavailable Elza Torrez MD Unavailable Unavailable Elza Torrez MD Unavailable Unavailable Elza Torrez MD Unavailable Unavailable Elza Torrez MD Unavailable Unavailable Elza Torrez MD Unavailable Unavailable Elza Torrez MD Unavailable Unavailable Elza Torrez MD Unavailable Unavailable Elza Torrez MD Unavailable Unavailable Elza Torrez MD Unavailable Unavailable Elza Torrez MD Unavailable Unavailable Elza Torrez MD Unavailable Unavailable Elza Torrez MD Unavailable Unavailable Elza Torrez MD Unavailable Unavailable Elza Torrez MD Unavailable Unavailable Elza Torrez MD Unavailable Unavailable Elza Torrez MD Unavailable Unavailable Elza Torrez MD Unavailable Unavailable Elza Torrez MD Unavailable Unavailable Elza Torrez MD Unavailable Unavailable Elza Torrez MD Unavailable Unavailable Elza Torrez MD Unavailable Unavailable Elza Torrez MD Unavailable Unavailable Elza Torrez MD Unavailable Unavailable Elza Torrez MD Unavailable Unavailable Elza Torrez MD Unavailable Unavailable Elza Torrez MD Unavailable Unavailable Elza Torrez MD Unavailable Unavailable Elza Torrez MD Unavailable Unavailable Elza Torrez MD Unavailable Unavailable Elza Torrez MD Unavailable Unavailable Elza Torrez MD Unavailable Unavailable Elza Torrez MD Unavailable Unavailable Elza Torrez MD Unavailable Unavailable Elza Torrez MD Unavailable Unavailable Elza Torrez MD Unavailable Unavailable Elza Torrez MD Unavailable Unavailable Elza Torrez MD Unavailable Unavailable Elza Torrez MD Unavailable Unavailable Elza Torrez MD Unavailable Unavailable Elza Torrez MD Unavailable Unavailable Elza Torrez MD Unavailable Unavailable Elza Torrez MD Unavailable Unavailable Elza Torrez MD Unavailable Unavailable Elza Torrez MD Unavailable Unavailable Elza Torrez MD Unavailable Unavailable Elza Torrez MD Unavailable Unavailable Elza Torrez MD Unavailable Unavailable Elza Torrez MD Unavailable Unavailable Elza Torrez MD Unavailable Unavailable Elza Torrez MD Unavailable Unavailable Elza Torrez MD Unavailable Unavailable Elza Torrez MD Unavailable Unavailable Elza Torrez MD Unavailable Unavailable Elza Torrez MD Unavailable Unavailable Elza Torrez MD Unavailable Unavailable Elza Torrez MD Unavailable Unavailable Elza Torrez MD Unavailable Unavailable Elza Torrez MD Unavailable Unavailable Elza Torrez MD Unavailable Unavailable Elza Torrez MD Unavailable Unavailable Elza Torrez MD Unavailable Unavailable Elza Torrez MD Unavailable Unavailable Elza Torrez MD Unavailable Unavailable Elza Torrez MD Unavailable Unavailable Elza Torrez MD Unavailable Unavailable Elza Torrez MD Unavailable Unavailable Elza Torrez MD Unavailable Unavailable Elza Torrez MD Unavailable Unavailable Elza Torrez MD Unavailable Unavailable Elza Torrez MD Unavailable Unavailable Elza Torrez MD Unavailable Unavailable Elza Torrez MD Unavailable Unavailable Elza Torrez MD Unavailable Unavailable Elza Torrez MD Unavailable Unavailable Elza Torrez MD Unavailable Unavailable Elza Torrez MD Unavailable Unavailable Elza Torrez MD Unavailable Unavailable Elza Torrez MD Unavailable Unavailable Elza Torrez MD Unavailable Unavailable Elza Torrez MD Unavailable Unavailable Elza Torrez MD Unavailable Unavailable Elza Torrez MD Unavailable Unavailable Luh Gilman LINDERMAN MACHINE OPERATOR LINDERMAN MACHINE OPERATOR Unavailable Unavailable Bianca Mcgrath RFID DEVELOPER Unavailable Unavailable Bianca Mcgrath RFID DEVELOPER Unavailable Unavailable Bianca Mcgrath RFID DEVELOPER Unavailable Unavailable El-Erasmo Aurea Unavailable Unavailable El-Erasmo Aurea Unavailable Unavailable El-Centner, Aurea Unavailable Unavailable El-Centner, Aurea Unavailable Unavailable El-Centner, Aurea Unavailable Unavailable El-Centner, Aurea Unavailable Unavailable El-Centner, Aurea Unavailable Unavailable El-Centner, Aurea Unavailable Unavailable El-Centner, Aurea Unavailable Unavailable El-Centner, Aurea Unavailable Unavailable El-Centner, Aurea Unavailable Unavailable Mukul, A Luh LINDERMAN MACHINE OPERATOR Unavailable Unavailable Mukul, A Luh LINDERMAN MACHINE OPERATOR Unavailable Unavailable Waveland, A Luh LINDERMAN MACHINE OPERATOR Unavailable Unavailable [place]aveland, A Luh LINDERMAN MACHINE OPERATOR Unavailable Unavailable [place]avel[place], A Luh LINDERMAN MACHINE OPERATOR Unavailable Unavailable [place]avel[place], A Luh LINDERMAN MACHINE OPERATOR Unavailable Unavailable [place]aveland, A Luh LINDERMAN MACHINE OPERATOR Unavailable Unavailable [place]aveland, A Luh LINDERMAN MACHINE OPERATOR Unavailable Unavailable [place]aveland, A Luh LINDERMAN MACHINE OPERATOR Unavailable Unavailable [place]avel[place], A Luh LINDERMAN MACHINE OPERATOR Unavailable Unavailable [place]aveland, A Luh LINDERMAN MACHINE OPERATOR Unavailable Unavailable [place]avel[place], A Luh LINDERMAN MACHINE OPERATOR Unavailable Unavailable [place]aveland, A Luh LINDERMAN MACHINE OPERATOR Unavailable Unavailable [place]aveland, A Luh LINDERMAN MACHINE OPERATOR Unavailable Unavailable [place]and, A Luh LINDERMAN MACHINE OPERATOR Unavailable Unavailable [place]aveland, A Luh LINDERMAN MACHINE OPERATOR Unavailable Unavailable Waveland, A Luh LINDERMAN MACHINE OPERATOR Unavailable Unavailable Waveland, A Luh LINDERMAN MACHINE OPERATOR Unavailable Unavailable [place]aveland, A Luh LINDERMAN MACHINE OPERATOR Unavailable Unavailable Waveland, A Luh LINDERMAN MACHINE OPERATOR Unavailable Unavailable Waveland, A Luh LINDERMAN MACHINE OPERATOR Unavailable Unavailable Waveland, A Luh LINDERMAN MACHINE OPERATOR Unavailable Unavailable Waveland, A Luh LINDERMAN MACHINE OPERATOR Unavailable Unavailable Waveland, A Luh LINDERMAN MACHINE OPERATOR Unavailable Unavailable Waveland, A Luh LINDERMAN MACHINE OPERATOR Unavailable Unavailable Waveland, A Luh LINDERMAN MACHINE OPERATOR Unavailable Unavailable Waveland, A Luh LINDERMAN MACHINE OPERATOR Unavailable Unavailable Waveland, A Luh LINDERMAN MACHINE OPERATOR Unavailable Unavailable Waveland, A Luh LINDERMAN MACHINE OPERATOR Unavailable Unavailable [place]avel[place], A Luh LINDERMAN MACHINE OPERATOR Unavailable Unavailable [place], A Luh LINDERMAN MACHINE OPERATOR Unavailable Unavailable Yany Mercedes Unavailable Tabby AGUILLON PA Unavailable Unavailable TONTATabby SOTO PA Unavailable Unavailable TONTATabby SOTOICK PA Unavailable Unavailable TONTATabby SOTOICK PA Unavailable Unavailable TONTATabby SOTO JOANIE PA Unavailable Unavailable TONTATabby SOTOICK PA Unavailable Unavailable TONTARSKI, G JOANIE PA Unavailable Unavailable TONTARSKI, G JOANIE PA Unavailable Unavailable TONTARSKI, G JOANIE PA Unavailable Unavailable TONTARSKI, G JOANIE PA Unavailable Unavailable TONTARSKI, G JOANIE PA Unavailable Unavailable TONTARSKI, G JOANIE PA Unavailable Unavailable TONTARSKI, G JOANIE PA Unavailable Unavailable TONTARSKI, G JOANIE PA Unavailable Unavailable TONTARSKI, G JOANIE PA Unavailable Unavailable TONTARSKI, G JOANIE PA Unavailable Unavailable TONTARSKI, G JOANIE PA Unavailable Unavailable TONTARSKI, G JOANIE PA Unavailable Unavailable TONTARSKI, G JOANIE PA Unavailable Unavailable TONTARSKI, G JOANIE PA Unavailable Unavailable TONTARSKI, G JOANIE PA Unavailable Unavailable TONTARSKI, G JOANIE PA Unavailable Unavailable TONTARSKI, G JOANIE PA Unavailable Unavailable TONTARSKI, G JOANIE PA Unavailable Unavailable TONTARSKI, G JOANIE PA Unavailable Unavailable TONTARSKI, G JOANIE PA Unavailable Unavailable TONTARSKI, G JOANIE PA Unavailable Unavailable TONTARSKI, G JOANIE PA Unavailable Unavailable TONTARSKI, G JOANIE PA Unavailable Unavailable TONTARSKI, G JOANIE PA Unavailable Unavailable TONTARSKI, G JOANIE PA Unavailable Unavailable TONTARSKI, G JOANIE PA Unavailable Unavailable TONTARSKI, G JOANIE PA Unavailable Unavailable TONTARSKI, G JOANIE PA Unavailable Unavailable TONTARSKI, G JOANIE PA Unavailable Unavailable TONTARSKI, G JOANIE PA Unavailable Unavailable TONTARSKI, G JOANIE PA Unavailable Unavailable TONTARSKI, G JOANIE PA Unavailable Unavailable TONTARSKI, G JOANIE PA Unavailable Unavailable TONTARSKI, G JOANIE PA Unavailable Unavailable TONTARSKI, G JOANIE PA Unavailable Unavailable TONTARSKI, G JOANIE PA Unavailable Unavailable TONTARSKI, G JOANIE PA Unavailable Unavailable TONTARSKI, G JOANIE PA Unavailable Unavailable TONTARSKI, G JOANIE PA Unavailable Unavailable TONTARSKI, G JOANIE PA Unavailable Unavailable TONTARSKI, G JOANIE PA Unavailable Unavailable Re-disclosure Warning The records that you are about to access may contain information from federally-assisted alcohol or drug abuse programs. If such information is present, then the following federally mandated warning applies: This information has been disclosed to you from records protected by federal confidentiality rules (42 CFR part 2). The federal rules prohibit you from making any further disclosure of this information unless further disclosure is expressly permitted by the written consent of the person to whom it pertains or as otherwise permitted by 42 CFR part 2. A general authorization for the release of medical or other information is NOT sufficient for this purpose. The Federal rules restrict any use of the information to criminally investigate or prosecute any alcohol or drug abuse patient.The records that you are about to access may contain highly sensitive health information, the redisclosure of which is protected by Article 27-F of the [facility] Public Health law. If you continue you may have access to information: Regarding HIV / AIDS; Provided by facilities licensed or operated by the [facility] Office of Mental Health; or Provided by the [facility] Office for People With Developmental Disabilities. If such information is present, then the following [facility] mandated warning applies: This information has been disclosed to you from confidential records which are protected by state law. State law prohibits you from making any further disclosure of this information without the specific written consent of the person to whom it pertains, or as otherwise permitted by law. Any unauthorized further disclosure in violation of state law may result in a fine or mcc sentence or both. A general authorization for the release of medical or other information is NOT sufficient authorization for further disc losure. Allergies and Adverse Reactions Type Description Substance Reaction Status Data Source(s ) Propensity to adverse reactions to substance Seroquel (queti apine) quetiapine 25 MG Oral Tablet [Seroquel] Active [facility] ([facility]) Allergy to substance Allergy to substance Allergy to substance [facility] ([facility]) Allergy to substance Allergy to substance Allergy to substance [facility] ([facility]) Allergy to substance Allergy to substance Allergy to substance [facility] ([facility]) Family History Family Member Name Family Member Gender Family Member Status Date o f Status Description Data Source(s) Unknown Female Problem [facility] ([facility]) Encounters Encounter Providers Location Date Indications Data Source(s ) Eddy Torrez MD: [address] [place] [phone], Ph. Attender: Eddy Torrez MD [facility] Medical 04/30/2021 12:00:00 AM EDT [facility] ([facility]) Eddy Torrez MD: [address] [place] [address], Ph. Attender: Eddy Torrez MD [facility] Medical 02/05/2021 12:00:00 AM EDT [facility] ([facility]) Eddy Torrez MD: [address] [place] [address], Ph. Attender: Eddy Torrez MD [facility] Medical 02/05/2021 12:00:00 AM EDT [facility] ([facility]) [place] [address] [facility] [address] 12/25/2020 12:00:00 AM EDT eCW1 ([facility]) Eddy Torrez MD: [address] [place] [address], Ph. Attender: Eddy Torrez MD [facility] Medical 11/22/2020 12:00:00 AM EST [facility] ([facility]) Eddy Torrez MD: [address] [place] [address], Ph. Attender: Eddy Torrez MD [facility] Medical 11/22/2020 12:00:00 AM EST [facility] ([facility]) Eddy Torrez MD: [address] [place] [address], Ph. Attender: Eddy Torrez MD [facility] Medical 11/22/2020 12:00:00 AM EST [facility] ([facility]) Eddy Torrez MD: [address] [place] [address], Ph. Attender: Eddy Torrez MD [facility] Medical 11/22/2020 12:00:00 AM EST [facility] ([facility]) Luh Gilman [facility]: [address] [place] [address], Ph. Attender: Luh Gilman [facility] Medical 11/07/2020 12:00:00 AM EST [facility] ([facility]) Luh Gilman [facility]: [address], [place] [address], Ph. Attender: Luh Gilman [facility] Medical 11/07/2020 12:00:00 AM EST [facility] ([facility]) Luh Gilman [facility]: [address], [place] [address], Ph. Attender: Luh Gilman [facility] Medical 11/07/2020 12:00:00 AM EST [facility] ([facility]) Luh Gilman [facility]: [address], [place] [address], Ph. Attender: Luh Gilman [facility] Medical 11/07/2020 12:00:00 AM EST [facility] ([facility]) Eddy Torrez MD: [address] [place] [address], Ph. Attender: Eddy Torrez MD [facility] Medical 10/17/2020 12:00:00 AM EST [facility] ([facility]) Eddy Torrez MD: [address] [place] [address], Ph. Attender: Eddy Torrez MD [facility] Medical 10/17/2020 12:00:00 AM EST [facility] ([facility]) Eddy Torrez MD: [address] [place] [address], Ph. Attender: Eddy Torrez MD [facility] Medical 10/17/2020 12:00:00 AM EST [facility] ([facility]) Eddy Torrez MD: [address] [place] [address], Ph. Attender: Eddy Torrez MD [facility] Medical 10/17/2020 12:00:00 AM EST [facility] ([facility]) Eddy Torrez MD: [address] [place] [address], Ph. Attender: Eddy Torrez MD [facility] Medical 10/17/2020 12:00:00 AM EST [facility] ([facility]) Aurea Gallegos RPA-C: [address], [place] [address], Ph. Attender: Aurea Hernadez [facility] Medical 10/08/2020 12:00:00 AM EST [facility] ([facility]) Aurea Gallegos RPA-C: [address], [place] [address], Ph. Attender: Aurea Hernadez [facility] Medical 10/08/2020 12:00:00 AM EST [facility] ([facility]) Aurea Gallegos RPA-C: [address], [place] [address], Ph. Attender: Aurea Hernadez [facility] Medical 10/08/2020 12:00:00 AM EST [facility] ([facility]) Aurea Gallegos RPA-C: [address], [place] [address], Ph. Attender: Aurea Hernadez [facility] Medical 10/08/2020 12:00:00 AM EST [facility] ([facility]) Aurea Gallegos RPA-C: [address] [place] [address], Ph. Attender: Aurea Hernadez [facility] Medical 10/08/2020 12:00:00 AM EST [facility] ([facility]) Aurea Gallegos RPA-C: [address] [place] [address], Ph. Attender: Aurea Hernadez [facility] Medical 10/08/2020 12:00:00 AM EST [facility] ([facility]) Outpatient Attender: [facility] 09:30:00 AM EST [facility] (Vick Joiner MD) Eddy Torrez MD: [address] [place] [address], Ph. Attender: Eddy Torrez MD [facility] Medical 09/10/2020 12:00:00 AM EST [facility] ([facility]) Eddy Torerz MD: [address] [place] [address], Ph. Attender: Eddy Torrez MD [facility] Medical 09/10/2020 12:00:00 AM EST [facility] ([facility]) Eddy Torrez MD: [address] [place] [address], Ph. Attender: Eddy Torrez MD [facility] Medical 09/10/2020 12:00:00 AM EST [facility] ([facility]) Eddy Torrez MD: [address] [place] [address], Ph. Attender: Eddy Torrez MD [facility] Medical 09/10/2020 12:00:00 AM EST [facility] ([facility]) Eddy Torrez MD: [address] [place] [address], Ph. Attender: Eddy Torrez MD [facility] Medical 09/10/2020 12:00:00 AM EST [facility] ([facility]) Eddy Torrez MD: [address] [place] [address], Ph. Attender: Eddy Torrez MD [facility] Medical 09/10/2020 12:00:00 AM EST [facility] ([facility]) Eddy Torrez MD: [address] [place] [address], Ph. Attender: Eddy Torrez MD [facility] Medical 09/10/2020 12:00:00 AM EST [facility] ([facility]) Eddy Torrez MD: [address] [place] [address], Ph. Attender: Eddy Torrez MD [facility] Medical 09/10/2020 12:00:00 AM EST [facility] ([facility]) Psychiatric Diagnostic Evaluation with Medical Service s Attender: Huy Mcgrath NP [facility] 07/10/2020 01:00:00 AM EDT - 07/10/2020 01:00:00 AM EDT [facility] ([facility]) Attender: Huy Mcgrath NP 07/10/2020 12:00:00 AM EDT [facility] ([facility]) Extended Individual Psychotherapy - 45 min Attender: Precious Mercedes [facility] 06/21/2020 01:00:00 AM EDT - 06/21/2020 01:00:00 AM EDT [facility] ([facility]) Attender: Yany Mercedes 06/21/2020 12:00:00 AM EDT [facility] ([facility]) Outpatient Attender: GOSIA CONTRERAS 06/13/2020 10:39:01 A M EDT [facility] Outpatient Att[facility]22[facility] 08:00:00 AM EDT - 05/22/2020 08:00:00 AM EDT [facility] ([facility]) Attender: Huy Mcgrath NP 05/22/2020 12:00:00 AM EDT [facility] ([facility]) Functional Status Immunizations Vaccine Date Status Description Data Source(s) COVID-19, mRNA, LNP-S, PF, 100 mcg/0.5 mL dose 10/08/2020 03 :10:38 PM EST completed .5 mL [facility]) COVID-19, mRNA, LNP-S, PF, 100 mcg/0.5 mL dose 10/08/2020 03 :10:38 PM EST completed .5 mL [facility]) COVID-19, mRNA, LNP-S, PF, 100 mcg/0.5 mL dose 10/08/2020 03 :10:38 PM EST completed .5 mL [facility]) COVID-19, mRNA, LNP-S, PF, 100 mcg/0.5 mL dose 10/08/2020 03 :10:38 PM EST completed .5 mL [facility]) COVID-19, mRNA, LNP-S, PF, 100 mcg/0.5 mL dose 10/08/2020 03 :10:38 PM EST completed .5 mL [facility]) COVID-19, mRNA, LNP-S, PF, 100 mcg/0.5 mL dose 10/08/2020 03 :10:38 PM EST completed .5 mL [facility]) COVID-19 VACCINE Moderna 10/08/2020 12:00:00 AM EST completed [facility] Vaccine Series Complete: YESThis Data wa s Submitted to [facility] Via [employer]. COVID-19, mRNA, LNP-S, PF, 100 mcg/0.5 mL dose 09/10/2020 05 :07:32 PM EST completed 09/10/20200.5 mL [facility] ([facility]) COVID-19, mRNA, LNP-S, PF, 100 mcg/0.5 mL dose 09/10/2020 05 :07:32 PM EST completed .5 mL [facility] ([facility]) COVID-19, mRNA, LNP-S, PF, 100 mcg/0.5 mL dose 09/10/2020 05 :07:32 PM EST completed .5 mL [facility] ([facility]) COVID-19, mRNA, LNP-S, PF, 100 mcg/0.5 mL dose 09/10/2020 05 :07:32 PM EST completed .5 mL [facility] ([facility]) COVID-19, mRNA, LNP-S, PF, 100 mcg/0.5 mL dose 09/10/2020 05 :07:32 PM EST completed .5 mL [facility] ([facility]) COVID-19, mRNA, LNP-S, PF, 100 mcg/0.5 mL dose 09/10/2020 05 :07:32 PM EST completed .5 mL [facility] ([facility]) COVID-19, mRNA, LNP-S, PF, 100 mcg/0.5 mL dose 09/10/2020 05 :07:32 PM EST completed .5 mL [facility] ([facility]) COVID-19, mRNA, LNP-S, PF, 100 mcg/0.5 mL dose 09/10/2020 05 :07:32 PM EST completed .5 mL [facility] ([facility]) COVID-19 VACCINE Moderna 09/10/2020 12:00:00 AM EST completed [facility] Vaccine Series Complete: NOThis Data was Submitted to [facility] Via [employer]. Medications Medication Brand Name Start Date Product Form Dose Route Admi nistrative Instructions Pharmacy Instructions Status Indications Reaction Description Data Source(s) Naltrexone 112 MG/ML Injectable Suspensi on [Vivitrol] Vivitrol 380 mg intramuscular suspension,extended release Vivitrol 380 mg intramuscular suspension,extended release completed naltrexone 380 MG Injection [Vivitrol] [facility] ([facility]) Azithromycin 500 MG Oral Tablet azithrom ycin 500 mg tablet TAKE 2 TABLET BY MOUTH ONCE azithromycin 500 mg tablet TAKE 2 TABLET BY MOUTH ONCE completed azithromycin 500 MG Oral Tablet [place] ([facility]) Azithromycin 500 MG Oral Tablet azithrom ycin 500 mg tablet TAKE 2 TABLET BY MOUTH ONCE azithromycin 500 mg tablet TAKE 2 TABLET BY MOUTH ONCE completed azithromycin 500 MG Oral Tablet [place] ([facility]) Azithromycin 500 MG Oral Tablet azithrom ycin 500 mg tablet TAKE 2 TABLET BY MOUTH ONCE azithromycin 500 mg tablet TAKE 2 TABLET BY MOUTH ONCE completed azithromycin 500 MG Oral Tablet [facility]) Azithromycin 500 MG Oral Tablet azithrom ycin 500 mg tablet TAKE 2 TABLET BY MOUTH ONCE azithromycin 500 mg tablet TAKE 2 TABLET BY MOUTH ONCE completed azithromycin 500 MG Oral Tablet [facility]) Naltrexone 112 MG/ML Injectable Suspensi on [Vivitrol] Vivitrol 380 mg intramuscular suspension,extended release Vivitrol 380 mg intramuscular suspension,extended release completed naltrexone 380 MG Injection [Vivitrol] [facility] ([facility]) Azithromycin 500 MG Oral Tablet azithrom ycin 500 mg tablet TAKE 2 TABLET BY MOUTH ONCE azithromycin 500 mg tablet TAKE 2 TABLET BY MOUTH ONCE completed azithromycin 500 MG Oral Tablet [facility]) Insurance Providers Payer name Policy type / Coverage type Policy ID Covered alliance party ID Covered alliance party's relationship to collado Policy [place]ado Plan Information Medicaid P [id number] S [id number] Medicaid Dental S [id number] S [id number] Medicaid S [id number] S [id number] Managed Care - Community Plan [facility] P [id number] S [id number] Managed Care - Community Plan [facility] P [id number] S [id number] Managed Care - [facility] Community Plan P [id number] S [id number] Managed Care - Community Plan [facility] P [id number] S [id number] Medicaid P [id number] S [id number] MEDICAID [id number] SP [id number] [facility] Community Plan Commercial [id number] Self [id number] [facility] Community Plan Commercial [id number] Self [id number] [facility] [id number] SP [id number] Managed Care Randy S [id number] S [id number] Medicaid P [id number] S [id number] [facility] DOPING SUPERVISOR DE O [id number] O [id number] [facility] WASTE RECYCLER DEPT [id number] SP [id number] [facility] [id number] SP [id number] MEDICAID [id number] S [id number] MEDICAID M [id number] S [id number] [facility] DOPING SUPERVISOR DEP [id number] SP [id number] UNHC COMMUNITY PLAN [facility] – [place] [id number] SP [id number] SELF PAY [id number] SP [id number] EMEDNY [id number] SP [id number] RANDY [id number] SP [id number] SELF PAY ONLY [id number] SP [id number] [facility] [id number] SP [id number] Self Pay S [id number] S [id number] [facility] [id number] SP [id number] Managed Care - Community 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 12/25/2020 12:00:0 0 AM EDT eCW1 ([facility]) [id number] Undescended testicle Undescended Testicle Problem 11/22/2020 12:00:00 AM EST THAIS ([facility]) 92554413 Hemorrhoids Hemorrhoids Problem 11/22/2020 12:00:00 AM EST THAIS ([facility]) [id number] Undescended testicle Undescended Testicle Problem 11/22/2020 12:00:00 AM EST THAIS ([facility]) [id number] Hemorrhoids Hemorrhoids Problem 11/22/2020 12:00:00 AM EST THAIS ([facility]) [id number] Undescended testicle Undescended Testicle Problem 11/22/2020 12:00:00 AM EST THAIS ([facility]) [id number] Hemorrhoids Hemorrhoids Problem 11/22/2020 12:00:00 AM EST THAIS ([facility]) [id number] Undescended testicle Undescended Testicle Problem 11/22/2020 12:00:00 AM EST THAIS ([facility]) 88043267 Hemorrhoids Hemorrhoids Problem 11/22/2020 12:00:00 AM EST THAIS ([facility]) [id number] Low back pain Low Back Pain Problem 10/17/2020 12:00:00 AM EST THAIS ([facility]) [id number] Low back pain Low Back Pain Problem 10/17/2020 12:00:00 AM EST THAIS ([facility]) [id number] Low back pain Low Back Pain Problem 10/17/2020 12:00:00 AM EST THAIS ([facility]) [id number] Low back pain Low Back Pain Problem 10/17/2020 12:00:00 AM EST THAIS ([facility]) 069514119 Low back pain Low Back Pain Problem 10/17/2020 12:00:00 AM EST THAIS ([facility]) F11.20 Opioid dependence, uncomplicated Opioid Use Disorder, Severe Condition 05/22/2020 12:00:00 AM EDT [facility] ([facility]) F15.20 Other stimulant dependence, uncomplicate d Stimulant Use Disorder, Severe: Amphetamine-type substance Condition 05/22/2020 12:00:00 AM EDT [facility] ([facility]) F90.1 Attention-deficit hyperactivity disorder , predominantly hyperactive type Attention-Deficit/Hyperactivity Disorder, Predominantly hyperactive/impulsive presentation Condition 05/22/2020 12:00:00 AM EDT [facility] ([facility]) Surgeries/Procedures Procedure Description Date Indications Data Source(s) Psychiatric Diagnostic Evaluation with Medical Services 07/10/2020 12:00:00 AM EDT - 07/10/2020 12:00:00 AM EDT [facility] ([facility] Psychiatric Diagnostic Evaluation with Medical Services 07/10/2020 12:00:00 AM EDT [facility] ([facility]) Extended Individual Psychotherapy - 45 min 06/21/2020 12:00:00 AM EDT - 06/21/2020 12:00:00 AM EDT [facility] ([facility]) Extended Individual Psychotherapy - 45 min 0 12:00:00 AM EDT [facility] ([facility]) MHC Telemed E/M Lvl 3--Est pt 05/22/2020 12:00:00 AM EDT - 05/22/2020 12:00:00 AM EDT [facility] ([facility]) MHC Telemed E/M Lvl 3--Est pt 05/22/2020 12:00:00 AM E DT [facility] ([facility]) Results ID Date Data Source [id number] 11/07/2020 09:33:00 AM EST THAIS ([facility]) Name Value Range Interpretation Code Description Data Sarai rce(s) Supporting Document(s) thyroid stimulating hormone 2.770 uIU/mL 0.358-3.740 Thyroid Stimulating Hormone THAIS ([facility]) ID Date Data Source [id number] 11/07/2020 09:33:00 AM EST THAIS ([facility]) Name Value Range Interpretation Code Description Data Sarai rce(s) Supporting Document(s) prostatic specific Ag monitor 0.46 NG/mL < 4.00 Prosta tic Specific Ag Monitor THAIS ([facility]) ID Date Data Source [id number] 11/07/2020 09:33:00 AM EST THAIS ([facility]) Name Value Range Interpretation Code Description Data Sarai rce(s) Supporting Document(s) testosterone 377 NG/dL 241-827 Testosterone THAIS ([facility]) ID Date Data Source [id number] 11/07/2020 09:33:00 AM EST THAIS ([facility]) Name Value Range Interpretation Code Description Data Sarai rce(s) Supporting Document(s) Cholesterol in LDL [Mass/volume] in Serum or Plasma 120 mg/dL <100 Above high normal LDL Cholesterol THAIS ([facility]) cholesterol level 192 mg/dL <200 Cholesterol Level THAIS ([facility]) triglycerides level 118 mg/dL <150 Triglycerides Le travis THAIS ([facility]) HDL cholesterol 48 mg/dL >40 HDL Cholesterol ATHE ([facility]) non-HDL-C 144 mg/dL Non-hdl-c TH[facility]IS ([facility]) cholesterol risk ratio <5 Cholesterol R isk Ratio THAIS ([facility]) ID Date Data Source [id number] 11/07/2020 09:33:00 AM EST THAIS ([facility]) Name Value Range Interpretation Code Description Data Sarai rce(s) Supporting Document(s) glucose, fasting 87 mg/dL 70-100 Glucose, Fasting AT [facility] ([facility]) glomerular filtration rate > 60.0 >60 Glomerula r Filtration Rate THAIS ([facility]) blood urea nitrogen 21 mg/dL 7-18 Above high normal Blood Ure a Nitrogen THAIS ([facility]) creatinine for GFR 1.10 mg/dL 0.70-1.30 Creatinine for GF R THAIS ([facility]) potassium serum 4.5 mEq/L 3.5-5.1 Potassium Serum ATHE NA ([facility]) carbon dioxide level 26 mEq/L 21-32 Carbon Dioxide Level THAIS ([facility]) sodium level 139 mEq/L 136-145 Sodium Level THAIS ([facility]) chloride level 107 mEq/L 98-107 Chloride Level THAIS ([facility]) AST/SGOT 13 U/L 7-37 AST/SGOT [facility] ([facility]) calcium level 9.3 mg/dL 8.5-10.1 Calcium Level THAIS ( [facility]) anion gap 6 mEq/L 8-16 Below low normal Anion Gap THAIS ( [facility]) ALT/SGPT 28 U/L 12-78 ALT/SGPT [facility]AIS ([facility]) alkaline phosphatase 55 U/L 45-117 Alkaline Phosph atase THAIS ([facility]) albumin 4.7 gm/dL 3.2-5.2 Albumin THAIS ([facility]) bilirubin,total 0.5 mg/dL 0.2-1.0 Bilirubin,total ATHE NA ([facility]) total protein 7.4 gm/dL 6.4-8.2 Total Protein THAIS ( [facility]) albumin/globulin ratio Albumin/globu maren Ratio THAIS ([facility]) ID Date Data Source [id number] 11/07/2020 09:33:00 AM EST THAIS ([facility]) Name Value Range Interpretation Code Description Data Sarai rce(s) Supporting Document(s) red blood count 5.42 10 4.30-6.10 Red Blood Count ATHE ([facility]) white blood count 5.9 10 4.0-10.0 White Blood Count THAIS ([facility]) hemoglobin 15.2 g/dL 13.5-17.5 Hemoglobin THAIS ([facility]) hematocrit 45.5 % 42.0-52.0 Hematocrit THAIS ([facility]) mean corpuscular volume 83.9 fL 80.0-96.0 Mean Corpusc ular Volume THAIS ([facility]) mean corpuscular hemoglobin 28.0 pg 27.0-33.0 Mean Cor puscular Hemoglobin THAIS ([facility]) mean corpuscular HGB conc 33.4 g/dL 32.0-36.5 Mean Corpu scular HGB Conc THAIS ([facility]) neutrophils % 46.9 % 36.0-66.0 Neutrophils % THAIS ( [facility]) red cell distribution width 13.0 % 11.5-14.5 Red Cell Distribution Width THAIS ([facility]) platelet count, automated 234 10 150-450 Platelet C ount, Automated THAIS ([facility]) eos % 3.0 % 0.0-3.0 Eos % [facility]AIS ([facility]) lymph % 41.4 % 24.0-44.0 Lymph % [facility]AIS ([facility]) mono % 8.2 % 2.0-8.0 Above high normal [place] % THAIS ([facility]) immature granulocyte % 0.2 % 0-3.0 Immature Gran ulocyte % THAIS ([facility]) baso % 0.3 % 0.0-1.0 Baso % THAIS ([facility]) nucleated red blood cell % 0.0 % 0-0 Nucleated Red Blood Cell % THAIS ([facility]) neutrophils # 2.8 10 1.5-8.5 Neutrophils # THAIS ( [facility]) lymph # 2.5 10 1.5-5.0 Lymph # THAIS ([facility]) mono # 0.5 10 0.0-0.8 [place] # THAIS ([facility]) baso # 0.0 10 0.0-0.2 Baso # [facility]AIS ([facility]) eos # 0.2 10 0.0-0.5 Eos # [facility]AIS ([facility]) ID Date Data Source [id number] 11/07/2020 09:33:00 AM EST THAIS ([facility]) Name Value Range Interpretation Code Description Data Sarai rce(s) Supporting Document(s) thyroid stimulating hormone 2.770 uIU/mL 0.358-3.740 Thyroid Stimulating Hormone THAIS ([facility]) ID Date Data Source [id number] 11/07/2020 09:33:00 AM EST THAIS ([facility]) Name Value Range Interpretation Code Description Data Sarai rce(s) Supporting Document(s) prostatic specific Ag monitor 0.46 NG/mL < 4.00 Prosta tic Specific Ag Monitor THAIS ([facility]) ID Date Data Source [id number] 11/07/2020 09:33:00 AM EST THAIS ([facility]) Name Value Range Interpretation Code Description Data Sarai rce(s) Supporting Document(s) testosterone 377 NG/dL 241-827 Testosterone THAIS ([facility]) ID Date Data Source [id number] 11/07/2020 09:33:00 AM EST THAIS ([facility]) Name Value Range Interpretation Code Description Data Sarai rce(s) Supporting Document(s) triglycerides level 118 mg/dL <150 Triglycerides [place] travis THAIS ([facility]) cholesterol level 192 mg/dL <200 Cholesterol Level THAIS ([facility]) non-HDL-C 144 mg/dL Non-hdl-c THAIS ([facility]) Cholesterol in LDL [Mass/volume] in Serum or Plasma 120 mg/dL <100 Above high normal LDL Cholesterol THAIS ([facility]) HDL cholesterol 48 mg/dL >40 HDL Cholesterol ATHE NA ([facility]) cholesterol risk ratio <5 Cholesterol R isk Ratio THAIS ([facility]) ID Date Data Source [id number] 11/07/2020 09:33:00 AM EST THAIS ([facility]) Name Value Range Interpretation Code Description Data Sarai rce(s) Supporting Document(s) glucose, fasting 87 mg/dL 70-100 Glucose, Fasting AT [place] ([facility]) glomerular filtration rate > 60.0 >60 Glomerula r Filtration Rate THAIS ([facility]) creatinine for GFR 1.10 mg/dL 0.70-1.30 Creatinine for GF R THAIS ([facility]) blood urea nitrogen 21 mg/dL 7-18 Above high normal Blood Ure a Nitrogen THAIS ([facility]) chloride level 107 mEq/L 98-107 Chloride Level THAIS ([facility]) sodium level 139 mEq/L 136-145 Sodium Level THAIS ([facility]) anion gap 6 mEq/L 8-16 Below low normal Anion Gap THAIS ( [facility]) potassium serum 4.5 mEq/L 3.5-5.1 Potassium Serum ATHE ([facility]) carbon dioxide level 26 mEq/L 21-32 Carbon Dioxide Level THAIS ([facility]) bilirubin,total 0.5 mg/dL 0.2-1.0 Bilirubin,total ATHE ([facility]) AST/SGOT 13 U/L 7-37 AST/SGOT [facility] ([facility]) alkaline phosphatase 55 U/L 45-117 Alkaline Phosph atase THAIS ([facility]) calcium level 9.3 mg/dL 8.5-10.1 Calcium Level THAIS ( [facility]) ALT/SGPT 28 U/L 12-78 ALT/SGPT [facility] ([facility]) albumin/globulin ratio Albumin/globu maren Ratio THAIS ([facility]) albumin 4.7 gm/dL 3.2-5.2 Albumin THA[facility] ([facility]) total protein 7.4 gm/dL 6.4-8.2 Total Protein THAIS ( [facility]) ID Date Data Source [id number] 11/07/2020 09:33:00 AM EST THAIS ([facility]) Name Value Range Interpretation Code Description Data Sarai rce(s) Supporting Document(s) white blood count 5.9 10 4.0-10.0 White Blood Count THAIS ([facility]) red blood count 5.42 10 4.30-6.10 Red Blood Count ATHE ([facility]) mean corpuscular volume 83.9 fL 80.0-96.0 Mean Corpusc ular Volume THAIS ([facility]) hematocrit 45.5 % 42.0-52.0 Hematocrit THAIS ([facility]) hemoglobin 15.2 g/dL 13.5-17.5 Hemoglobin THAIS ([facility]) mean corpuscular hemoglobin 28.0 pg 27.0-33.0 Mean Cor puscular Hemoglobin THAIS ([facility]) mean corpuscular HGB conc 33.4 g/dL 32.0-36.5 Mean Corpu scular HGB Conc [place] ([facility]) red cell distribution width 13.0 % 11.5-14.5 Red Cell Distribution Width THAIS ([facility]) platelet count, automated 234 10 150-450 Platelet C ount, Automated THAIS ([facility]) baso % 0.3 % 0.0-1.0 Baso % [place] ([facility]) neutrophils % 46.9 % 36.0-66.0 Neutrophils % [place] ( [facility]) mono % 8.2 % 2.0-8.0 Above high normal [place] % [place] ([facility]) lymph % 41.4 % 24.0-44.0 Lymph % [place] ([facility]) eos % 3.0 % 0.0-3.0 Eos % [place] ([facility]) neutrophils # 2.8 10 1.5-8.5 Neutrophils # [place] ( [facility]) nucleated red blood cell % 0.0 % 0-0 Nucleated Red Blood Cell % [place] ([facility]) immature granulocyte % 0.2 % 0-3.0 Immature Gran ulocyte % [place] ([facility]) lymph # 2.5 10 1.5-5.0 Lymph # [place] ([facility]) eos # 0.2 10 0.0-0.5 Eos # [place] ([facility]) baso # 0.0 10 0.0-0.2 Baso # [facility] ([facility]) mono # 0.5 10 0.0-0.8 [place] # [place] ([facility]) ID Date Data Source [id number] 11/07/2020 09:33:00 AM EST [place] ([facility]) Name Value Range Interpretation Code Description Data Sarai rce(s) Supporting Document(s) thyroid stimulating hormone 2.770 uIU/mL 0.358-3.740 Thyroid Stimulating Hormone [place] ([facility]) ID Date Data Source [id number] 11/07/2020 09:33:00 AM EST THAIS ([facility]) Name Value Range Interpretation Code Description Data Sarai rce(s) Supporting Document(s) prostatic specific Ag monitor 0.46 NG/mL < 4.00 Prosta tic Specific Ag Monitor [facility]ASI ([facility]) ID Date Data Source [id number] 11/07/2020 09:33:00 AM EST THAIS ([facility]) Name Value Range Interpretation Code Description Data Sarai rce(s) Supporting Document(s) testosterone 377 NG/dL 241-827 Testosterone THAIS (No [facility]) ID Date Data Source [id number] 11/07/2020 09:33:00 AM EST [facility] ([facility]) Name Value Range Interpretation Code Description Data Sarai rce(s) Supporting Document(s) cholesterol level 192 mg/dL <200 Cholesterol Level [facility]AIS ([facility]) triglycerides level 118 mg/dL <150 Triglycerides [place] THAIS ([facility]) non-HDL-C 144 mg/dL Non-hdl-c [facility] ([facility]) HDL cholesterol 48 mg/dL >40 HDL Cholesterol ATHE NA ([facility]) Cholesterol in LDL [Mass/volume] in Serum or Plasma 120 mg/dL <100 Above high normal LDL Cholesterol [facility]AIS ([facility]) cholesterol risk ratio <5 Cholesterol R isk Ratio [facility]IS ([facility]) ID Date Data Source [id number] 11/07/2020 09:33:00 AM EST THAIS ([facility]) Name Value Range Interpretation Code Description Data Sarai rce(s) Supporting Document(s) glucose, fasting 87 mg/dL 70-100 Glucose, Fasting AT [facility] ([facility]) glomerular filtration rate > 60.0 >60 Glomerula r Filtration Rate THAIS ([facility]) blood urea nitrogen 21 mg/dL 7-18 Above high normal Blood Ure a Nitrogen [facility] ([facility]) sodium level 139 mEq/L 136-145 Sodium Level THAIS (No [facility]) creatinine for GFR 1.10 mg/dL 0.70-1.30 Creatinine for GF R [facility] ([facility]) potassium serum 4.5 mEq/L 3.5-5.1 Potassium Serum ATHE NA ([facility]) carbon dioxide level 26 mEq/L 21-32 Carbon Dioxide Level THAIS ([facility]) calcium level 9.3 mg/dL 8.5-10.1 Calcium Level THAIS ( [facility]) chloride level 107 mEq/L 98-107 Chloride Level TH[facility] ([facility]) anion gap 6 mEq/L 8-16 Below low normal Anion Gap THAIS ( [facility]) AST/SGOT 13 U/L 7-37 AST/SGOT [facility] ([facility]) bilirubin,total 0.5 mg/dL 0.2-1.0 Bilirubin,total ATHE ([facility]) alkaline phosphatase 55 U/L 45-117 Alkaline Phosph atase TH[facility] ([facility]) ALT/SGPT 28 U/L 12-78 ALT/SGPT [facility] ([facility]) albumin/globulin ratio Albumin/globu maren Ratio THAIS ([facility]) total protein 7.4 gm/dL 6.4-8.2 Total Protein [facility] ( [facility]) albumin 4.7 gm/dL 3.2-5.2 Albumin [facility] ([facility]) ID Date Data Source [id number] 11/07/2020 09:33:00 AM EST THAIS ([facility]) Name Value Range Interpretation Code Description Data Sarai rce(s) Supporting Document(s) white blood count 5.9 10 4.0-10.0 White Blood Count [facility] ([facility]) red blood count 5.42 10 4.30-6.10 Red Blood Count ATHE ([facility]) hemoglobin 15.2 g/dL 13.5-17.5 Hemoglobin [facility]IS ([facility]) mean corpuscular hemoglobin 28.0 pg 27.0-33.0 Mean Cor puscular Hemoglobin [facility] ([facility]) hematocrit 45.5 % 42.0-52.0 Hematocrit [facility] ([facility]) mean corpuscular volume 83.9 fL 80.0-96.0 Mean Corpusc ular Volume THAIS ([facility]) neutrophils % 46.9 % 36.0-66.0 Neutrophils % [facility] ( [facility]) platelet count, automated 234 10 150-450 Platelet C ount, Automated THA[facility] ([facility]) red cell distribution width 13.0 % 11.5-14.5 Red Cell Distribution Width [facility] ([facility]) mean corpuscular HGB conc 33.4 g/dL 32.0-36.5 Mean Corpu scular HGB Conc [place] ([facility]) baso % 0.3 % 0.0-1.0 Baso % [facility] ([facility]) mono % 8.2 % 2.0-8.0 Above high normal [place] % [facility] ([facility]) eos % 3.0 % 0.0-3.0 Eos % [facility] ([facility]) lymph % 41.4 % 24.0-44.0 Lymph % [facility] ([facility]) neutrophils # 2.8 10 1.5-8.5 Neutrophils # [place] ( [facility]) immature granulocyte % 0.2 % 0-3.0 Immature Gran ulocyte % [place] ([facility]) nucleated red blood cell % 0.0 % 0-0 Nucleated Red Blood Cell % [facility] ([facility]) mono # 0.5 10 0.0-0.8 [place] # [facility] ([facility]) lymph # 2.5 10 1.5-5.0 Lymph # [facility] ([facility]) baso # 0.0 10 0.0-0.2 Baso # [facility] ([facility]) eos # 0.2 10 0.0-0.5 Eos # [facility] ([facility]) ID Date Data Source [id number] 11/07/2020 09:33:00 AM EST [facility]AIS ([facility]) Name Value Range Interpretation Code Description Data Sarai rce(s) Supporting Document(s) thyroid stimulating hormone 2.770 uIU/mL 0.358-3.740 Thyroid Stimulating Hormone [facility] ([facility]) ID Date Data Source [id number] 11/07/2020 09:33:00 AM EST [facility]AIS ([facility]) Name Value Range Interpretation Code Description Data Sarai rce(s) Supporting Document(s) prostatic specific Ag monitor 0.46 NG/mL < 4.00 Prosta tic Specific Ag Monitor [facility] ([facility]) ID Date Data Source [id number] 11/07/2020 09:33:00 AM EST [facility]AIS ([facility]) Name Value Range Interpretation Code Description Data Sarai rce(s) Supporting Document(s) testosterone 377 NG/dL 241-827 Testosterone [facility] (No [facility]) ID Date Data Source [id number] 11/07/2020 09:33:00 AM EST [facility]AIS ([facility]) Name Value Range Interpretation Code Description Data Sarai rce(s) Supporting Document(s) cholesterol level 192 mg/dL <200 Cholesterol Level [facility] ([facility]) triglycerides level 118 mg/dL <150 Triglycerides [place] [facility] ([facility]) Cholesterol in LDL [Mass/volume] in Serum or Plasma 120 mg/dL <100 Above high normal LDL Cholesterol [facility] ([facility]) HDL cholesterol 48 mg/dL >40 HDL Cholesterol ATHE NA ([facility]) cholesterol risk ratio <5 Cholesterol R isk Ratio [facility] ([facility]) non-HDL-C 144 mg/dL Non-hdl-c [facility] ([facility]) ID Date Data Source [id number] 11/07/2020 09:33:00 AM EST [facility] ([facility]) Name Value Range Interpretation Code Description Data Sarai rce(s) Supporting Document(s) glucose, fasting 87 mg/dL 70-100 Glucose, Fasting AT [place] ([facility]) blood urea nitrogen 21 mg/dL 7-18 Above high normal Blood Ure a Nitrogen [facility] ([facility]) creatinine for GFR 1.10 mg/dL 0.70-1.30 Creatinine for GF R [facility] ([facility]) glomerular filtration rate > 60.0 >60 Glomerula r Filtration Rate [facility] ([facility]) sodium level 139 mEq/L 136-145 Sodium Level [facility]AIS (No [facility]) carbon dioxide level 26 mEq/L 21-32 Carbon Dioxide Level [facility] ([facility]) potassium serum 4.5 mEq/L 3.5-5.1 Potassium Serum AT[facility] ([facility]) chloride level 107 mEq/L 98-107 Chloride Level [facility] ([facility]) anion gap 6 mEq/L 8-16 Below low normal Anion Gap [facility] ( [facility]) calcium level 9.3 mg/dL 8.5-10.1 Calcium Level [facility] ( [facility]) ALT/SGPT 28 U/L 12-78 ALT/SGPT [facility] ([facility]) AST/SGOT 13 U/L 7-37 AST/SGOT [facility] ([facility]) bilirubin,total 0.5 mg/dL 0.2-1.0 Bilirubin,total ATHE ([facility]) alkaline phosphatase 55 U/L 45-117 Alkaline Phosph atase [facility] ([facility]) total protein 7.4 gm/dL 6.4-8.2 Total Protein [facility] ( [facility]) albumin 4.7 gm/dL 3.2-5.2 Albumin [facility] ([facility]) albumin/globulin ratio Albumin/globu maren Ratio THAIS ([facility]) ID Date Data Source [id number] 11/07/2020 09:33:00 AM EST THAIS ([facility]) Name Value Range Interpretation Code Description Data Sarai rce(s) Supporting Document(s) white blood count 5.9 10 4.0-10.0 White Blood Count THAIS ([facility]) hemoglobin 15.2 g/dL 13.5-17.5 Hemoglobin THAIS ([facility]) red blood count 5.42 10 4.30-6.10 Red Blood Count ATHE NA ([facility]) mean corpuscular HGB conc 33.4 g/dL 32.0-36.5 Mean Corpu scular HGB Conc THAIS ([facility]) mean corpuscular volume 83.9 fL 80.0-96.0 Mean Corpusc ular Volume THAIS ([facility]) mean corpuscular hemoglobin 28.0 pg 27.0-33.0 Mean Cor puscular Hemoglobin THAIS ([facility]) hematocrit 45.5 % 42.0-52.0 Hematocrit THAIS ([facility]) red cell distribution width 13.0 % 11.5-14.5 Red Cell Distribution Width THAIS ([facility]) platelet count, automated 234 10 150-450 Platelet C ount, Automated THAIS ([facility]) neutrophils % 46.9 % 36.0-66.0 Neutrophils % THAIS ( [facility]) mono % 8.2 % 2.0-8.0 Above high normal [place] % THAIS ([facility]) lymph % 41.4 % 24.0-44.0 Lymph % THAIS ([facility]) eos % 3.0 % 0.0-3.0 Eos % THAIS ([facility]) baso % 0.3 % 0.0-1.0 Baso % THAIS ([facility]) immature granulocyte % 0.2 % 0-3.0 Immature Gran ulocyte % THAIS ([facility]) nucleated red blood cell % 0.0 % 0-0 Nucleated Red Blood Cell % THAIS ([facility]) mono # 0.5 10 0.0-0.8 [place] # THAIS ([facility]) neutrophils # 2.8 10 1.5-8.5 Neutrophils # THAIS ( [facility]) lymph # 2.5 10 1.5-5.0 Lymph # THAIS ([facility]) eos # 0.2 10 0.0-0.5 Eos # THAIS ([facility]) baso # 0.0 10 0.0-0.2 Baso # THAIS ([facility]) ID Date Data Source [id number] 07/08/2020 10:48:00 AM EDT MEDERICK (Vick Joiner MD) Name Value Range Interpretation Code Description Data Sarai rce(s) Supporting Document(s) Hepatitis C virus RNA [Units/volume] (vi ral load) in Serum or Plasma by Probe with amplification Laboratory test result Normal (applies t o non-numeric results) MEDENT (Vick Joiner MD) Negative: HCV RNA Not Detected ID Date Data Source [id number] 07/08/2020 10:48:00 AM EDT MEDERICK (Vick Joiner MD) Name Value Range Interpretation Code Description Data Sarai rce(s) Supporting Document(s) Laboratory test finding (navigational concept) 0.02 0 .00-0.21 Normal (applies to non-numeric results) MEDENT (Vick Joiner MD) Laboratory test finding (navigational concept) Laboratory test r esult Normal (applies to non-numeric results) MEDENT (Vick Joiner MD) F0 - No fibrosis Laboratory test finding (navigational concept) 0.09 0 .00-0.17 Normal (applies to non-numeric results) MEDERICK (Vick Joiner MD) Laboratory test finding (navigational concept) 121 mg/dL 1 7-317 Normal (applies to non-numeric results) MEDENT (Vick Joiner MD) Laboratory test finding (navigational concept) 100 mg/dL 1 10-276 Below low normal MEDENT (Vick Joiner MD) Laboratory test finding (navigational concept) Laboratory test r esult Normal (applies to non-numeric results) MEDENT (Vick Joiner MD) Laboratory test finding (navigational concept) 14 IU/L 0 -65 Normal (applies to non-numeric results) MEDERICK (Vick Joiner MD) Laboratory test finding (navigational concept) 163 mg/dL 1 01-178 Normal (applies to non-numeric results) MEDENT (Vick Joiner MD) Laboratory test finding (navigational concept) 0.2 mg/dL 0 .0-1.2 Normal (applies to non-numeric results) RISA (Vick Joiner MD) Laboratory test finding (navigational concept) 29 IU/L 0 -55 Normal (applies to non-numeric results) RISA (Vick Joiner MD) Laboratory test finding (navigational concept) Laboratory test r esult Normal (applies to non-numeric results) RISA (Vick Joiner MD) <content>.</content>
<content><0.21 = Stage F0 - No fibrosis</content>
<content>0.21 - 0.27 = Stage F0 - F1</content>
<content>0.27 - 0.31 = Stage F1 - Portal fibrosis</content>
<content>0.31 - 0.48 = Stage F1 - F2</content>
<content>0.48 - 0.58 = Stage F2 - Bridging fibrosis with few septa</content>
<content>0.58 - 0.72 = Stage F3 - Bridging fibrosis with many septa</content>
<content>0.72 - 0.74 = Stage F3 - F4</content>
<content>>0.74 = Stage F4 - Cirrhosis</content>
<content></content> Laboratory test finding (navigational concept) Laboratory test r esult Normal (applies to non-numeric results) RISA (Vick Joiner MD) . Quantitative results of 6 biochemical tests are analyzed using a computational algorithm to provide a quantitative surrogate marker (0.0-1.0) for liver fibrosis (METAVIR F0- F4) and for necroinflammatory activity (METAVIR A0-A3). Laboratory test finding (navigational concept) Laboratory test r esult Normal (applies to non-numeric results) RISA (Vick Joiner MD) <content>The negative predictive value o f a Fibrotest score <0.31</content>
<content>(absence of clinically significant fibrosis) was 85% when</content>
<content>compared to liver biopsy in 1,270 HCV infected patients</content>
<content>with a 38% prevalence of significant liver fibrosis (F2, 3</content>
<content>or 4). The positive predictive value of a Fibro-test score</content>
<content>>0.48 (F2, 3, 4) was 61% in that same patient cohort. HCV</content>
<content>FibroSURE is not recommended in patients with Gilbert</content>
<content>Disease, acute hemolysis (e.g. HCV ribavirin therapy</content>
<content>mediated hemolysis) acute hepa-titis of the liver, extra-</content>
<content>hepatic cholestasis, transplant patients, and/or renal</content>
<content>insufficiency patients. Any of these clinical situations</content>
<content>may lead to inaccurate quantitative predictions of</content>
<content>fibrosis and necroinflammatory activity in the liver.</content>
<content></content> Laboratory test finding (navigational concept) Laboratory test r esult Normal (applies to non-numeric results) MEDENT (Vick Joiner MD) <content>.</content>
<content><0.17 = Grade A0 - No Activity</content>
<content>0.17 - 0.29 = Grade A0 - A1</content>
<content>0.29 - 0.36 = Grade A1 - Minimal activity</content>
<content>0.36 - 0.52 = Grade A1 - A2</content>
<content>0.52 - 0.60 = Grade A2 - Moderate activity</content>
<content>0.60 - 0.62 = Grade A2 - A3</content>
<content>>0.62 = Grade A3 - Severe activity</content>
<content></content> Laboratory test finding (navigational concept) Laboratory test r esult Normal (applies to non-numeric results) MEDENT (Vick Joiner MD) . This test was developed and its performance characteristics determined by [facility]. It has not been cleared or approved by the Food and Drug Administration. The FDA has determined that such clearance or approval is not necessary. . For questions regarding this report please contact customer service at . ID Date Data Source [id number] 07/08/2020 10:48:00 AM EDT MEDENT (Vick Joiner MD) Name Value Range Interpretation Code Description Data Sarai rce(s) Supporting Document(s) Hepatitis A virus IgG Ab [Units/volume] in Serum Laboratory test result Abnormal (applies to non-numeric results) MEDENT (Vick woods MD) Performed at: [address] [id number] [employer] Specialty Technician: Yenni Ramos MD, Phone: [phone] Performed at: [address] [id number] Automotive Specialty Technician: Ashley Funes MD, Phone: [phone] ID Date Data Source [id number] 07/08/2020 10:48:00 AM EDT MEDENT (Vick Joiner MD) Name Value Range Interpretation Code Description Data Sarai rce(s) Supporting Document(s) Laboratory test finding (navigational concept) Laboratory test r esult Normal (applies to non-numeric results) MEDENT (Vick Joiner MD) Specimen has insufficient hepatitis C vi ese RNA to obtain genotyping results. This genotyping assay should only be used for known HCV positive patients with HCV RNA levels above 1000 IU/mL. Laboratory test finding (navigational concept) Laboratory test r esult Normal (applies to non-numeric results) MEDENT (Vick Joiner MD) . This test was developed and its performance characteristics determined by [facility]. It has not been cleared or approved by the U.S. Food and Drug Administration. . The FDA has determined that such clearance or approval is not necessary. This test is used for clinical purposes. It should not be regarded as investigational or for research. ID Date Data Source [id number] 07/08/2020 10:48:00 AM EDT MEDENT (Vick Joiner MD) Name Value Range Interpretation Code Description Data Sarai rce(s) Supporting Document(s) Hepatitis B virus surface Ag [Presence] in Serum or Pl asma by Immunoassay Laboratory test result Normal (applies to non-numeric results) MEDENT (Vick Joiner MD) Hepatitis B virus surface Ab [Presence] in Serum by Im munoassay Laboratory test result Normal (applies to non-numeric results) M EDENT (Vick Joiner MD) ID Date Data Source [id number] 07/02/2020 11:46:00 AM EDT MEDENT (Vick Joiner MD) Name Value Range Interpretation Code Description Data Sarai rce(s) Supporting Document(s) Hepatitis C virus RNA [Units/volume] (vi ral load) in Serum or Plasma by Probe with amplification Laboratory test result Normal (applies t o non-numeric results) MEDENT (Vick Joiner MD) Negative: HCV RNA Not Detected Performed at: [address] [id number] Automotive Specialty Technician: Yenni Ramos MD, Phone: [phone] ID Date Data Source [id number] 07/02/2020 11:46:00 AM EDT MEDENT (Vick Joiner MD) Name Value Range Interpretation Code Description Data Sarai rce(s) Supporting Document(s) Laboratory test finding (navigational concept) Laboratory test r esult Above high normal MEDENT (Vick Joiner MD) <content>This screening test for Hepatit is C Virus was above the 1.0</content>
<content>cutoff index value and will be sent to reference lab</content>
<content>Laboratory [facility], [place],</content>
<content>[place] [id number] for Hep C RNA TINA testing to confirm or exclude</content>
<content>active Hepatitis C Virus infection. Screening test Positive</content>
<content>samples with high index values (>11.0) usually (95%) confirm</content>
<content>Positive, but <5 of every 100 samples with this result might</content>
<content>be a false positive and Hep C RNA TINA testing will aid in</content>
<content>patient management.</content>
<content></content> Laboratory test finding (navigational concept) Laboratory test r esult Normal (applies to non-numeric results) MEDENT (Vick Joiner MD) Laboratory test finding (navigational concept) Laboratory test r esult Normal (applies to non-numeric results) MEDENT (Vick Joiner MD) Laboratory test finding (navigational concept) Laboratory test r esult Normal (applies to non-numeric results) MEDENT (Vick Joiner MD) ID Date Data Source [id number] 07/02/2020 11:46:00 AM EDT MEDERICK (Vick Joiner MD) Name Value Range Interpretation Code Description Data Sarai rce(s) Supporting Document(s) Testosterone [Mass/volume] in Serum or Plasma 329 ng/dL 24 1-827 Normal (applies to non-numeric results) MEDERICK (Vick Joiner MD) NORMAL RANGES ARE FOR ADULT FEMALES (OVE R 15 YRS) AND MALES (OVER 19 YRS). FOR PEDIATRIC RANGES PLE ASE CONSULT LITERATURE. ID Date Data Source [id number] 07/02/2020 11:46:00 AM EDT MEDERICK (Vick Joiner MD) Name Value Range Interpretation Code Description Data Sarai rce(s) Supporting Document(s) Laboratory test finding (navigational concept) 100 mg/dL 7 0-100 Normal (applies to non-numeric results) MEDENT (Vick Joiner MD) Laboratory test finding (navigational concept) 1.16 mg/dL 0 .70-1.30 Normal (applies to non-numeric results) MEDENT (Vick Joiner MD) Laboratory test finding (navigational concept) 18 mg/dL 7 -18 Normal (applies to non-numeric results) MEDENT (Vick Joiner MD) Laboratory test finding (navigational concept) Laboratory test r esult Normal (applies to non-numeric results) MEDERICK (Vick Joiner MD) <content>Units are mL/min/1.73 m2</content>
<content></content>
<content>Chronic Kidney Disease Staging per NKF:</content>
<content></content>
<content>Stage I & II GFR >=60 Normal to Mildly Decreased</content>
<content>Stage III GFR 30- 59 Moderately Decreased</content>
<content>Stage IV GFR 15-29 Severely Decreased</content>
<content>Stage V GFR <15 Very Little GFR Left</content>
<content>ESRD GFR <15 on ATTORNEY LAWYER</content>
<content></content> Laboratory test finding (navigational concept) 4.1 meq/L 3 .5-5.1 Normal (applies to non-numeric results) MEDENT (Vick Joiner MD) Laboratory test finding (navigational concept) 139 meq/L 1 36-145 Normal (applies to non-numeric results) MEDENT (Vick Joiner MD) Laboratory test finding (navigational concept) 106 meq/L 9 8-107 Normal (applies to non-numeric results) MEDENT (Vick Joiner MD) Laboratory test finding (navigational concept) 10.0 mg/dL 8 .5-10.1 Normal (applies to non-numeric results) MEDENT (Vick Joiner MD) Laboratory test finding (navigational concept) 4 meq/L 8-16 Below low normal MEDENT (Vick Joiner MD) Laboratory test finding (navigational concept) 29 meq/L 2 1-32 Normal (applies to non-numeric results) MEDENT (Vick Joiner MD) Laboratory test finding (navigational concept) 110 U/L 7-37 Above high normal MEDENT (Vick Joiner MD) Laboratory test finding (navigational concept) 60 U/L 4 5-117 Normal (applies to non-numeric results) MEDENT (Vick Joiner MD) Laboratory test finding (navigational concept) 69 U/L 1 2-78 Normal (applies to non-numeric results) JWENT (Vick Joiner MD) Laboratory test finding (navigational concept) 4.4 GM/DL 3 .2-5.2 Normal (applies to non-numeric results) MEDENT (Vick Joiner MD) Laboratory test finding (navigational concept) 7.9 GM/DL 6 .4-8.2 Normal (applies to non-numeric results) MEDENT (Vick Joiner MD) Laboratory test finding (navigational concept) 0.4 mg/dL 0 .2-1.0 Normal (applies to non-numeric results) MEDENT (Vick Joiner MD) Laboratory test finding (navigational concept) 1.3 Normal (applies to non- numeric results) MEDENT (Vick Joiner MD) ID Date Data Source [id number] 07/02/2020 11:46:00 AM EDT MEDENT (Vick Joiner MD) Name Value Range Interpretation Code Description Data Sarai rce(s) Supporting Document(s) Laboratory test finding (navigational concept) 8.2 10 4 .0-10.0 Normal (applies to non-numeric results) MEDENT (Vick Joiner MD) Laboratory test finding (navigational concept) 5.27 10 4 .30-6.10 Normal (applies to non-numeric results) MEDENT (Vick Joiner MD) Laboratory test finding (navigational concept) 43.0 % 4 2.0-52.0 Normal (applies to non-numeric results) MEDENT (Vick Joiner MD) Laboratory test finding (navigational concept) 14.2 g/dL 1 3.5-17.5 Normal (applies to non-numeric results) MEDENT (Vick Joiner MD) Laboratory test finding (navigational concept) 33.0 g/dL 3 2.0-36.5 Normal (applies to non-numeric results) MEDERICK (Vick Joiner MD) Laboratory test finding (navigational concept) 26.9 pg 2 7.0-33.0 Below low normal MEDENT (Vick Joiner MD) Laboratory test finding (navigational concept) 81.6 fl 8 0.0-96.0 Normal (applies to non-numeric results) MEDENT (iVck Joiner MD) Laboratory test finding (navigational concept) 279 10 1 50-450 Normal (applies to non-numeric results) MEDENT (Vick Joiner MD) Laboratory test finding (navigational concept) 13.4 % 1 1.5-14.5 Normal (applies to non-numeric results) MEDENT (Vick Joiner MD) Laboratory test finding (navigational concept) 64.6 % 3 6.0-66.0 Normal (applies to non-numeric results) MEDENT (Vick Joiner MD) Laboratory test finding (navigational concept) 1.5 % 0 .0-3.0 Normal (applies to non-numeric results) MEDENT (Vick Joiner MD) Laboratory test finding (navigational concept) 6.7 % 0.0-5.0 Above high normal MEDENT (Vick Joiner MD) Laboratory test finding (navigational concept) 26.6 % 2 4.0-44.0 Normal (applies to non-numeric results) MEDENT (Vick Joiner MD) Laboratory test finding (navigational concept) 0.4 % 0 -3.0 Normal (applies to non-numeric results) MEDENT (Vick Joiner MD) Laboratory test finding (navigational concept) 0.2 % 0 .0-1.0 Normal (applies to non-numeric results) MEDENT (Vick Joiner MD) Laboratory test finding (navigational concept) 2.2 10 1 .5-5.0 Normal (applies to non-numeric results) MEDENT (Vick Joiner MD) Laboratory test finding (navigational concept) 0.0 % 0 -0 Normal (applies to non- numeric results) MEDENT (Vick Joiner MD) Laboratory test finding (navigational concept) 5.3 10 1 .5-8.5 Normal (applies to non-numeric results) RISA (Vick Joiner MD) Laboratory test finding (navigational concept) 0.6 10 0 .0-0.8 Normal (applies to non-numeric results) MEDENT (Vick Joiner MD) Laboratory test finding (navigational concept) 0.0 10 0 .0-0.2 Normal (applies to non-numeric results) RISA (Vick Joiner MD) Laboratory test finding (navigational concept) 0.1 10 0 .0-0.5 Normal (applies to non-numeric results) RISA (Vick Joiner MD) ID Date Data Source [id number] 07/02/2020 11:44:00 AM EDT MEDERICK (Vick Joiner MD) Name Value Range Interpretation Code Description Data Sarai rce(s) Supporting Document(s) Laboratory test finding (navigational concept) Laboratory test r esult Normal (applies to non-numeric results) MEDENT (Vick Joiner MD) Laboratory test finding (navigational concept) Laboratory test r esult Normal (applies to non-numeric results) MEDENT (Vick Joiner MD) Laboratory test finding (navigational concept) Laboratory test r esult Normal (applies to non-numeric results) MEDENT (Vick Joiner MD) Laboratory test finding (navigational concept) 1.024 1 .002-1.035 Normal (applies to non-numeric results) MEDENT (Vick Joiner MD) Laboratory test finding (navigational concept) 6.0 units 5 .0-9.0 Normal (applies to non-numeric results) MEDENT (Vick Joiner MD) Laboratory test finding (navigational concept) Laboratory test r esult Normal (applies to non-numeric results) MEDENT (Vick Joiner MD) Laboratory test finding (navigational concept) Laboratory test r esult Normal (applies to non-numeric results) MEDENT (Vick Joiner MD) Laboratory test finding (navigational concept) 0.2 mg/dL 0 .0-2.0 Normal (applies to non-numeric results) MEDENT (Vick Joiner MD) Laboratory test finding (navigational concept) Laboratory test r esult Normal (applies to non-numeric results) MEDENT (Vick Joiner MD) Laboratory test finding (navigational concept) Laboratory test r esult Normal (applies to non-numeric results) MEDENT (Vick Joiner MD) Laboratory test finding (navigational concept) Laboratory test r esult Normal (applies to non-numeric results) MEDENT (Vick Joiner MD) Laboratory test finding (navigational concept) 0 /HPF 0 -3 Normal (applies to non-numeric results) JWENT (Vick Joiner MD) Laboratory test finding (navigational concept) 3 /HPF 0 -3 Normal (applies to non-numeric results) JWENT (Vick Joiner MD) Laboratory test finding (navigational concept) Laboratory test r esult Normal (applies to non-numeric results) MEDENT (Vick Joiner MD) Laboratory test finding (navigational concept) Laboratory test r esult Normal (applies to non-numeric results) MEDENT (Vick Joiner MD) Laboratory test finding (navigational concept) Laboratory test r esult Normal (applies to non-numeric results) MEDENT (Vick Joiner MD) Laboratory test finding (navigational concept) 0 /HPF 0 -6 Normal (applies to non-numeric results) MEDENT (Vick Joiner MD) Laboratory test finding (navigational concept) 0 /LPF 0 -1 Normal (applies to non-numeric results) MEDENT (Vick Joiner MD) Procedure Social History Code Duration Value Status Description Data Source(s ) Smoking 12/25/2020 12:00:00 AM EDT Former Smoker completed Former Smoker eCW1 ([facility]) Smoking 07/10/2020 12:00:00 AM EDT Unknown if ever smoked comp leted Unknown if ever smoked [facility] ([facility]) Smoking 06/21/2020 12:00:00 AM EDT Unknown if ever smoked comp leted Unknown if ever smoked [facility] ([facility]) Smoking 05/22/2020 12:00:00 AM EDT Unknown if ever smoked comp leted Unknown if ever smoked [facility] ([facility]) Vital Signs ID Date Data Source [id number] Name Value Range Interpretation Code Description Data Source(s) Diastolic blood pressure 84 mm[Hg] 84 mm[Hg] THAIS ([facility]) Body height 69 [in_i] 69 [in_i] [place] ([facility]) Body mass index (BMI) [Ratio] 30.2 kg/m2 30.2 k g/m2 THAIS ([facility]) Systolic blood pressure 134 mm[Hg] 134 mm[Hg] A THENA ([facility]) Body weight 3272 [oz_av] 3272 [oz_av] THAIS ([facility]) Diastolic blood pressure 99 mm[Hg] 99 mm[Hg] THAIS ([facility]) Body height 69 [in_i] 69 [in_i] THAIS ([facility]) Body mass index (BMI) [Ratio] 29.9 kg/m2 29.9 k g/m2 THAIS ([facility]) Systolic blood pressure 138 mm[Hg] 138 mm[Hg] A THENA ([facility]) Body weight 3236 [oz_av] 3236 [oz_av] THAIS ([facility]) Body mass index (BMI) [Ratio] 29.9 kg/m2 29.9 k g/m2 THAIS ([facility]) Systolic blood pressure 138 mm[Hg] 138 mm[Hg] A THENA ([facility]) Diastolic blood pressure 99 mm[Hg] 99 mm[Hg] THAIS ([facility]) Body height 69 [in_i] 69 [in_i] THAIS ([facility]) Body weight 3236 [oz_av] 3236 [oz_av] THAIS ([facility]) Body weight 210.4 [lb_av] 210.4 [lb_av] eCW1 ([facility]) Body height 69 [in_i] 69 [in_i] eCW[facility] Body mass index (BMI) [Ratio] 30 kg/m2 30 kg/ m2 W1 ([facility]) Heart rate 57 /min 57 /min eCW1 ([facility]) Respiratory rate 18 /min 18 /min W1 ([facility]) Body temperature 97.2 [degF] 97.2 [degF] eCW1 ( [facility]) Systolic blood pressure 128 mm[Hg] 128 mm[Hg] e CW1 ([facility]) Diastolic blood pressure 76 mm[Hg] 76 mm[Hg] eCW1 ([facility]) Diastolic blood pressure 73 mm[Hg] 73 mm[Hg] THAIS ([facility]) Body height 69 [in_i] 69 [in_i] THAIS ([facility]) Body mass index (BMI) [Ratio] 32.8 kg/m2 32.8 k g/m2 THAIS ([facility]) Systolic blood pressure 128 mm[Hg] 128 mm[Hg] A THENA ([facility]) Body weight 3554 [oz_av] 3554 [oz_av] THAIS ([facility]) Diastolic blood pressure 73 mm[Hg] 73 mm[Hg] THAIS ([facility]) Body height 69 [in_i] 69 [in_i] THAIS ([facility]) Body mass index (BMI) [Ratio] 32.8 kg/m2 32.8 k g/m2 THAIS ([facility]) Systolic blood pressure 128 mm[Hg] 128 mm[Hg] A THENA ([facility]) Body weight 3554 [oz_av] 3554 [oz_av] THAIS ([facility]) Diastolic blood pressure 73 mm[Hg] 73 mm[Hg] THAIS ([facility]) Body height 69 [in_i] 69 [in_i] HTAIS ([facility]) Body mass index (BMI) [Ratio] 32.8 kg/m2 32.8 k g/m2 THAIS ([facility]) Systolic blood pressure 128 mm[Hg] 128 mm[Hg] A THENA ([facility]) Body weight 3554 [oz_av] 3554 [oz_av] THAIS ([facility]) Diastolic blood pressure 73 mm[Hg] 73 mm[Hg] THAIS ([facility]) Body height 69 [in_i] 69 [in_i] THAIS ([facility]) Body mass index (BMI) [Ratio] 32.8 kg/m2 32.8 k g/m2 THAIS ([facility]) Systolic blood pressure 128 mm[Hg] 128 mm[Hg] A THENA ([facility]) Body weight 3554 [oz_av] 3554 [oz_av] THAIS ([facility]) Diastolic blood pressure 77 mm[Hg] 77 mm[Hg] THAIS ([facility]) Body height 69 [in_i] 69 [in_i] [facility]IS [facility] [facility] Body mass index (BMI) [Ratio] 32.2 kg/m2 32.2 k g/m2 [facility] ([facility]) Body weight 3490 [oz_av] 3490 [oz_av] [facility]IS ([facility]) Systolic blood pressure 146 mm[Hg] 146 mm[Hg] [facility]) Diastolic blood pressure 77 mm[Hg] 77 mm[Hg] THAIS ([facility]) Body height 69 [in_i] 69 [in_i] THAIS ([facility]) Body mass index (BMI) [Ratio] 32.2 kg/m2 32.2 k g/m2 THA[facility] ([facility]) Systolic blood pressure 146 mm[Hg] 146 mm[Hg] A THENA ([facility]) Body weight 3490 [oz_av] 3490 [oz_av] THAIS ([facility]) Diastolic blood pressure 77 mm[Hg] 77 mm[Hg] THAIS ([facility]) Body height 69 [in_i] 69 [in_i] [facility] ([facility]) Body mass index (BMI) [Ratio] 32.2 kg/m2 32.2 k g/m2 [facility] ([facility]) Systolic blood pressure 146 mm[Hg] 146 mm[Hg] A [facility]) Body weight 3490 [oz_av] 3490 [oz_av] THAIS ([facility]) Diastolic blood pressure 77 mm[Hg] 77 mm[Hg] [facility]AIS ([facility]) Body height 69 [in_i] 69 [in_i] THAIS ([facility]) Body mass index (BMI) [Ratio] 32.2 kg/m2 32.2 k g/m2 THA[facility] ([facility]) Systolic blood pressure 146 mm[Hg] 146 mm[Hg] A THENA ([facility]) Body weight 3490 [oz_av] 3490 [oz_av] THAIS ([facility]) Diastolic blood pressure 77 mm[Hg] 77 mm[Hg] THAIS ([facility]) Body height 69 [in_i] 69 [in_i] THAIS ([facility]) Body mass index (BMI) [Ratio] 32.2 kg/m2 32.2 k g/m2 THAIS ([facility]) Systolic blood pressure 146 mm[Hg] 146 mm[Hg] A THENA ([facility]) Body weight 3490 [oz_av] 3490 [oz_av] THAIS ([facility]) Body height 0.00 in Normal (applies to non-numeric resu lts) 0.00 in [facility] ([facility]) Body weight Measured 0.00 lbs Normal (applies to n on-numeric results) 0.00 lbs [facility] ([facility]) Body mass index (BMI) [Ratio] 0.00 kg/m2 No rmal (applies to non-numeric results) 0.00 kg/m2 [facility] ([facility]) Systolic blood pressure 0 mm[Hg] Normal (applies t o non-numeric results) 0 mm[Hg] [facility] ([facility]) Diastolic blood pressure 0 mm[Hg] Normal (applies to non-numeric results) 0 mm[Hg] [facility] ([facility]) Systolic blood pressure 143 mm[Hg] 143 mm[Hg] M ED[facility]) Diastolic blood pressure 84 mm[Hg] 84 mm[Hg] MEDENT ([facility]) Heart rate 70 /min 70 /min MEDENT ([facility]) Patient Treatment Plan of Care Planned Activity Planned Date Details Description Data Source (s) Naltrexone 112 MG/ML Injectable Suspension [Vivitrol] THAIS ([facility]) Azithromycin 500 MG Oral Tablet [place] ([facility]) Azithromycin 500 MG Oral Tablet THAIS ([facility]) Azithromycin 500 MG Oral Tablet THAIS ([facility]) Azithromycin 500 MG Oral Tablet THAIS ([facility]) Naltrexone 112 MG/ML Injectable Suspension [Vivitrol] THAIS ([facility]) Azithromycin 500 MG Oral Tablet THAIS [facility])
[2021-06-25] MEDS ORDERED: LIDOCAINE 1% MDV 20ML VIAL SC ONE (15:10)
--- OUTSIDE RECORDS SUMMARY | 2021-06-25 15:25 | CCD ---
Author Author [facility] Organization [facility] Address Unknown Phone Unavailable Care Team Providers Care Molded Parts Inspector Name Role Phone Elza Torrez MD Unavailable [...] Unavailable Unavailable Elza Torrez MD Unavailable Unavailable Ezla Torrez MD Unavailable Unavailable Elza Torrez MD [...] Elza Torrez MD Unavailable Unavailable Luh Gilman LIVESTOCK FARMWORKER LIVESTOCK FARMWORKER Unavailable Unavailable Bianca Mcgrath HAM SMOKER Unavailable Unavailable Bianca Mcgrath HAM SMOKER Unavailable Unavailable Bianca Mcgrath HAM SMOKER Unavailable Unavailable El-[place]ner, Aurea Unavailable Unavailable El-[place]ner, Aurea Unavailable Unavailable El-[place]ner, Aurea Unavailable Unavailable [place]ner, Aurea Unavailable Unavailable [place]ner, Aurea Unavailable Unavailable [place]ner, Aurea Unavailable Unavailable [place]ner, Aurea Unavailable Unavailable [place]ner, Aurea Unavailable Unavailable [place], Aurea Unavailable Unavailable [place], Aurea Unavailable Unavailable [place], Aurea Unavailable Unavailable Mukul, A Luh LIVESTOCK FARMWORKER Unavailable Unavailable Mukul, A Luh LIVESTOCK FARMWORKER Unavailable Unavailable [place], A Luh LIVESTOCK FARMWORKER Unavailable Unavailable Mukul, A Luh LIVESTOCK FARMWORKER Unavailable Unavailable [place], A Luh LIVESTOCK FARMWORKER Unavailable Unavailable [place], A Luh LIVESTOCK FARMWORKER Unavailable Unavailable [place], A Luh LIVESTOCK FARMWORKER Unavailable Unavailable [place], A Luh LIVESTOCK FARMWORKER Unavailable Unavailable [place], A Luh LIVESTOCK FARMWORKER Unavailable Unavailable [place], A Luh LIVESTOCK FARMWORKER Unavailable Unavailable [place], A Luh LIVESTOCK FARMWORKER Unavailable Unavailable [place], A Luh LIVESTOCK FARMWORKER Unavailable Unavailable [place], A Luh LIVESTOCK FARMWORKER Unavailable Unavailable [place], A Luh LIVESTOCK FARMWORKER Unavailable Unavailable [place], A Luh LIVESTOCK FARMWORKER Unavailable Unavailable [place], A Luh LIVESTOCK FARMWORKER Unavailable Unavailable [place], A Luh LIVESTOCK FARMWORKER Unavailable Unavailable [place], A Lhu LIVESTOCK FARMWORKER Unavailable Unavailable [place], A Luh LIVESTOCK FARMWORKER Unavailable Unavailable [place], A Luh LIVESTOCK FARMWORKER Unavailable Unavailable [place], A Luh LIVESTOCK FARMWORKER Unavailable Unavailable [place], A Luh LIVESTOCK FARMWORKER Unavailable Unavailable [place], A Luh LIVESTOCK FARMWORKER Unavailable Unavailable [place], A Luh LIVESTOCK FARMWORKER Unavailable Unavailable [place], A Luh LIVESTOCK FARMWORKER Unavailable Unavailable [place], A Luh LIVESTOCK FARMWORKER Unavailable Unavailable [place], A Luh LIVESTOCK FARMWORKER Unavailable Unavailable [place], A Luh LIVESTOCK FARMWORKER Unavailable Unavailable [place], A Luh LIVESTOCK FARMWORKER Unavailable Unavailable [place], A Luh LIVESTOCK FARMWORKER Unavailable Unavailable [place], A Luh LIVESTOCK FARMWORKER Unavailable Unavailable Yany Mercedes Unavailable Tabby AGUILLON PA Unavailable Unavailable Tabby AGUILLON PA Unavailable Unavailable Tabby AGUILLON PA Unavailable Unavailable Tabby AGUILLON PA Unavailable Unavailable TONTARSKI, G JOANIE PA Unavailable Unavailable TONTARSCATALINO, G JOANIE PA Unavailable Unavailable TONTARSCATALINO, G JOANIE PA Unavailable Unavailable TONTARSCATALINO, G JOANIE PA Unavailable Unavailable TONTARSCATALINO, G JOANIE PA Unavailable Unavailable TONTARSCATALINO, G JOANIE PA Unavailable Unavailable TONTARSCATALINO, G JOANIE PA Unavailable Unavailable TONTARSCATALINO, G JOANIE PA Unavailable Unavailable TONTARSCATALINO, G JOANIE PA Unavailable Unavailable TONTARSCATALINO, G JOANIE PA Unavailable Unavailable TONTARSCATALINO, G JOANIE PA Unavailable Unavailable TONTARSCATALINO, G JOANIE PA Unavailable Unavailable TONTARSCATALINO, G JOANIE PA Unavailable Unavailable TONTARSCATALINO, G JOANIE PA Unavailable Unavailable TONTARSCATALINO, G JOANIE PA Unavailable Unavailable TONTARSCATALINO, G JOANIE PA Unavailable Unavailable TONTARSCATALINO, G JOANIE PA Unavailable Unavailable TONTARSCATALINO, G JOANIE PA Unavailable Unavailable TONTARSCATALINO, G JOANIE PA Unavailable Unavailable TONTARSCATALINO, G JOANIE PA Unavailable Unavailable TONTARSCATALINO, G JOANIE PA Unavailable Unavailable TONTARSCATALINO, G JOANIE PA Unavailable Unavailable TONTARSCATALINO, G JOANIE PA Unavailable Unavailable TONTARSCATALINO, G JOANIE PA Unavailable Unavailable TONTARSCATALINO, G JOANIE PA Unavailable Unavailable TONTARSCATALINO, G JOANIE PA Unavailable Unavailable TONTARSCATALINO, G JOANIE PA Unavailable Unavailable TONTARSCATALINO, G JOANIE PA Unavailable Unavailable TONTARSCATALINO, G JOANIE PA Unavailable Unavailable TONTARSCATALINO, G JOANIE PA Unavailable Unavailable TONTARSCATALINO, G JOANIE PA Unavailable Unavailable TONTARSCATALINO, G JOANIE PA Unavailable Unavailable TONTARSCATALINO, G JOANIE PA Unavailable Unavailable TONTARSCATALINO, G JOANIE PA Unavailable Unavailable TONTARSCATALINO, G JOANIE PA Unavailable Unavailable TONTARSCATALINO, G JOANIE PA Unavailable Unavailable TONTARSCATALINO, G JOANIE PA Unavailable Unavailable TONTARSCATALINO, G JOANIE PA Unavailable Unavailable TONTARSCATALINO, G JOANIE PA Unavailable Unavailable TONTARSCATALINO, G JOANIE PA Unavailable Unavailable TONTARSCATALINO, G JOANIE PA Unavailable Unavailable TONTARSCATALINO, G JOANIE PA Unavailable Unavailable TONTARSCATALINO, G JOANIE PA Unavailable Unavailable Re-disclosure Warning [...] is protected by Article 27-F of the [facility] Public Health law. If you continue you may have access to information: Regarding HIV / AIDS; Provided by facilities licensed or operated by the [facility] Office of Mental Health; or Provided by the [facility] Office for People With Developmental Disabilities. If such information is present, then the following [facility] mandated warning applies: This information has [...] law may result in a fine or correction sentence or both. A general authorization for the release of medical or other information is NOT sufficient authorization for further disc losure. Allergies and Adverse Reactions Type Description Substance Reaction Status Data Source(s ) Propensity to adverse reactions to substance Seroquel (queti apine) quetiapine 25 MG Oral Tablet [Seroquel] Active [facility] ([facility]) Allergy to substance Allergy to substance Allergy to substance [facility] ([facility]) Allergy to substance Allergy to substance Allergy to substance TH[facility] ([facility]) Allergy to substance Allergy to substance Allergy to substance [facility] ([facility]) Family History Family Member Name Family Member Gender Family Member Status Date o f Status Description Data Source(s) Unknown Female Problem MEDENT ([facility]) Encounters Encounter Providers Location Date Indications Data Source(s ) Eddy Torrez MD: [address] [place] [address], Ph. Attender: Eddy Torrez MD [facility] Medical 04/30/2021 12:00:00 AM EDT THAIS ([facility]) Eddy Torrez MD: [address] [place] [address], Ph. Attender: Eddy Torrez MD [facility] Medical 02/05/2021 12:00:00 AM EDT THAIS ([facility]) Eddy Torrez MD: [address] [place] [address], Ph. Attender: Eddy Torrez MD [facility] Medical 02/05/2021 12:00:00 AM EDT THAIS ([facility]) Outpatient [address] [facility] [address] 12/25/2020 12:00:00 AM EDT eCW1 ([facility]) Eddy Torrez MD: [address] [place] [address], Ph. Attender: Eddy Torrez MD [facility] Medical 11/22/2020 12:00:00 AM EST THAIS ([facility]) Eddy Torrez MD: [address] [place] [address], Ph. Attender: Eddy Torrez MD [facility] Medical 11/22/2020 12:00:00 AM EST THAIS ([facility]) Eddy Torrez MD: [address] [place] [address], Ph. Attender: Eddy Torrez MD [facility] Medical 11/22/2020 12:00:00 AM EST THAIS ([facility]) Eddy Torrez MD: [address] [place] [address], Ph. Attender: Eddy Torrez MD [facility] Medical 11/22/2020 12:00:00 AM EST THAIS ([facility]) Luh Gilman [facility]: [address] [place] [address], Ph. Attender: Luh Gilman [facility] Medical 11/07/2020 12:00:00 AM EST THAIS ([facility]) Luh Gilman [facility]: [address] [place] [address], Ph. Attender: Luh Gilman [facility] Medical 11/07/2020 12:00:00 AM EST THAIS ([facility]) Luh Gilman [facility]: [address], [place] [address], Ph. Attender: Luh Gilman [facility] Medical 11/07/2020 12:00:00 AM EST THAIS ([facility]) Luh Gilman [facility]: [address], [place] [address], Ph. Attender: Luh Gilman [facility] Medical 11/07/2020 12:00:00 AM EST THAIS ([facility]) Eddy Torrez MD: [address], [place] [address], Ph. Attender: Eddy Torrez MD [facility] Medical 10/17/2020 12:00:00 AM EST THAIS ([facility]) Eddy Torrez MD: [address], [place] [address], Ph. Attender: Eddy Torrez MD [facility] Medical 10/17/2020 12:00:00 AM EST THAIS ([facility]) Eddy Torrez MD: [address] [place] [address], Ph. Attender: Eddy Torrez MD [facility] Medical 10/17/2020 12:00:00 AM EST [facility] ([facility]) Eddy Torrez MD: [address] [place] [address], Ph. Attender: Eddy Torrez MD [facility] Medical 10/17/2020 12:00:00 AM EST [facility] ([facility]) Eddy Torrez MD: [address] [place] [address], Ph. Attender: Eddy Torrez MD [facility] Medical 10/17/2020 12:00:00 AM EST THAIS ([facility]) Aurea Gallegos RPA-C: [address] [place] [address], Ph. Attender: Aurea Hernadez [facility] Medical 10/08/2020 12:00:00 AM EST [facility]AIS ([facility]) Aurea Gallegos RPA-C: [address] [place] [address], Ph. Attender: Aurea Hernadez [facility] Medical 10/08/2020 12:00:00 AM EST [facility]AIS ([facility]) Aurea Gallegos RPA-C: [address] [place] [address], Ph. Attender: Aurea Hernadez [facility] Medical 10/08/2020 12:00:00 AM EST [facility]AIS ([facility]) Aurea Gallegos RPA-C: [address] [place] [address], Ph. Attender: Aurea Hernadez [facility] Medical 10/08/2020 12:00:00 AM EST [facility]AIS ([facility]) Aurea Gallegos RPA-C: [address] [place] [address], Ph. Attender: Aurea Hernadez [facility] Medical 10/08/2020 12:00:00 AM EST [facility]AIS ([facility]) Aurea Gallegos RPA-C: [address] [place] [address], Ph. Attender: Aurea Hernadez [facility] Medical 10/08/2020 12:00:00 AM EST [facility]AIS ([facility]) Outpatient Attender: [facility] 09:30:00 AM EST MEDENT (Vick Joiner MD) Eddy Torrez MD: [address] [place] [address], Ph. Attender: Eddy Torrez MD [facility] Medical 09/10/2020 12:00:00 AM EST THAIS ([facility]) Eddy Torrez MD: [address] [place] [address], Ph. Attender: Eddy Torrez MD [facility] Medical 09/10/2020 12:00:00 AM EST [facility]AIS ([facility]) Eddy Torrez MD: [address] [place] [address], Ph. Attender: Eddy Torrez MD [facility] Medical 09/10/2020 12:00:00 AM EST [facility]AIS ([facility]) Eddy Torrez MD: [address] [place] [address], Ph. Attender: Eddy Torrez MD [facility] Medical 09/10/2020 12:00:00 AM EST [facility]AIS ([facility]) Eddy Torrez MD: [address] [place] [address], Ph. Attender: Eddy Torrez MD [facility] Medical 09/10/2020 12:00:00 AM EST [facility]AIS ([facility]) Eddy Torrez MD: [address] [place] [address], Ph. Attender: Eddy Torrez MD [facility] Medical 09/10/2020 12:00:00 AM EST [facility]AIS ([facility]) Eddy Torrez MD: [address] [place] [address], Ph. Attender: Eddy Torrez MD [facility] Medical 09/10/2020 12:00:00 AM EST [facility]AIS ([facility]) Eddy Torrez MD: [address] [place] [address], Ph. Attender: Eddy Torrez MD [facility] Medical 09/10/2020 12:00:00 AM EST [facility]AIS ([facility]) Psychiatric Diagnostic Evaluation with Medical Service s Attender: Huy Mcgrath NP [facility] 07/10/2020 01:00:00 AM EDT - 07/10/2020 01:00:00 AM EDT [facility] ([facility]) Attender: Huy Mcgrath NP 07/10/2020 12:00:00 AM EDT [facility] ([facility]) Extended Individual Psychotherapy - 45 min Attender: Precious Mercedes [facility] 06/21/2020 01:00:00 AM EDT - 06/21/2020 01:00:00 AM EDT [facility] ([facility]) Attender: Yany Mercedes 06/21/2020 12:00:00 AM EDT [facility] ([facility]) Outpatient Attender: GOSIA CONTRERAS 06/13/2020 10:39:01 A M EDT [facility] Outpatient Attender: Huy Mcgrath NP [facility] 05/22/2020 08:00:00 AM EDT - 05/22/2020 08:00:00 AM EDT [facility] ([facility]) Attender: Huy Mcgrath NP 05/22/2020 12:00:00 AM EDT [facility] ([facility]) Functional Status Immunizations Vaccine Date Status Description Data Source(s) COVID-19, mRNA, LNP-S, PF, 100 mcg/0.5 mL dose 10/08/2020 03 :10:38 PM EST completed .5 mL [facility]) COVID-19, mRNA, LNP-S, PF, 100 mcg/0.5 mL dose 10/08/2020 03 :10:38 PM EST completed .5 mL [facility]) COVID-19, mRNA, LNP-S, PF, 100 mcg/0.5 mL dose 10/08/2020 03 :10:38 PM EST completed .5 mL [facility]) COVID-19, mRNA, LNP-S, PF, 100 mcg/0.5 mL dose 10/08/2020 03 :10:38 PM EST completed .5 mL [facility]) COVID-19, mRNA, LNP-S, PF, 100 mcg/0.5 mL dose 10/08/2020 03 :10:38 PM EST completed .5 mL [facility]) COVID-19, mRNA, LNP-S, PF, 100 mcg/0.5 mL dose 10/08/2020 03 :10:38 PM EST completed .5 mL [facility]) COVID-19 VACCINE Moderna 10/08/2020 12:00:00 AM EST completed [facility] Vaccine Series Complete: YESThis Data wa s Submitted to [facility]. COVID-19, mRNA, LNP-S, PF, 100 mcg/0.5 mL dose 09/10/2020 05 :07:32 PM EST completed .5 mL THAIS ([facility]) COVID-19, mRNA, LNP-S, PF, 100 mcg/0.5 mL dose 09/10/2020 05 :07:32 PM EST completed .5 mL [facility]IS ([facility]) COVID-19, mRNA, LNP-S, PF, 100 mcg/0.5 mL dose 09/10/2020 05 :07:32 PM EST completed .5 mL [facility] ([facility]) COVID-19, mRNA, LNP-S, PF, 100 mcg/0.5 mL dose 09/10/2020 05 :07:32 PM EST completed .5 mL [facility] ([facility]) COVID-19, mRNA, LNP-S, PF, 100 mcg/0.5 mL dose 09/10/2020 05 :07:32 PM EST completed .5 mL [facility] ([facility]) COVID-19, mRNA, LNP-S, PF, 100 mcg/0.5 mL dose 09/10/2020 05 :07:32 PM EST completed .5 mL [facility] ([facility]) COVID-19, mRNA, LNP-S, PF, 100 mcg/0.5 mL dose 09/10/2020 05 :07:32 PM EST completed .5 mL [facility] ([facility]) COVID-19, mRNA, LNP-S, PF, 100 mcg/0.5 mL dose 09/10/2020 05 :07:32 PM EST completed .5 mL [facility]AIS ([facility]) COVID-19 VACCINE Moderna 09/10/2020 12:00:00 AM EST completed [facility] Vaccine Series Complete: NOThis Data was Submitted to [facility] [employer]. Medications Medication Brand Name Start Date Product Form Dose Route Admi nistrative Instructions Pharmacy Instructions Status Indications Reaction Description Data Source(s) Naltrexone 112 MG/ML Injectable Suspensi on [Vivitrol] Vivitrol 380 mg intramuscular suspension,extended release Vivitrol 380 mg intramuscular suspension,extended release completed naltrexone 380 MG Injection [Vivitrol] THAIS ([facility]) Azithromycin 500 MG Oral Tablet azithrom ycin 500 mg tablet TAKE 2 TABLET BY MOUTH ONCE azithromycin 500 mg tablet TAKE 2 TABLET BY MOUTH ONCE completed azithromycin 500 MG Oral Tablet MONTROSE ([facility]) Azithromycin 500 MG Oral Tablet azithrom ycin 500 mg tablet TAKE 2 TABLET BY MOUTH ONCE azithromycin 500 mg tablet TAKE 2 TABLET BY MOUTH ONCE completed azithromycin 500 MG Oral Tablet [facility]TR[facility] ([facility]) Azithromycin 500 MG Oral Tablet azithrom ycin 500 mg tablet TAKE 2 TABLET BY MOUTH ONCE azithromycin 500 mg tablet TAKE 2 TABLET BY MOUTH ONCE completed azithromycin 500 MG Oral Tablet [facility]) Azithromycin 500 MG Oral Tablet azithrom ycin 500 mg tablet TAKE 2 TABLET BY MOUTH ONCE azithromycin 500 mg tablet TAKE 2 TABLET BY MOUTH ONCE completed azithromycin 500 MG Oral Tablet MONTROSE ([facility]) Naltrexone 112 MG/ML Injectable Suspensi on [Vivitrol] Vivitrol 380 mg intramuscular suspension,extended release Vivitrol 380 mg intramuscular suspension,extended release completed naltrexone 380 MG Injection [Vivitrol] [facility]TROSE ([facility]) Azithromycin 500 MG Oral Tablet azithrom ycin 500 mg tablet TAKE 2 TABLET BY MOUTH ONCE azithromycin 500 mg tablet TAKE 2 TABLET BY MOUTH ONCE completed azithromycin 500 MG Oral Tablet MONTROSE ([facility]) Insurance Providers Payer name Policy type / Coverage type Policy ID Covered libertarian ID Covered libertarian's relationship to collado Policy Collado Plan Information Medicaid P [id number] S [id number] Medicaid Dental S [id number] S [id number] Medicaid S [id number] S [id number] Managed Care - Community Plan [facility] P [id number] S [id number] Managed Care - Community Plan [facility] P [id number] S [id number] Managed Care [facility] Community Plan P [id number] S [id number] Managed Care - Community Plan [facility] P [id number] S [id number] Medicaid P [id number] S [id number] MEDICAID [id number] SP [id number] [facility] Community Plan Commercial [id number] Self [id number] [facility] Community Plan Commercial [id number] Self [id number] [facility] [id number] SP [id number] Managed Care Randy S [id number] S [id number] Medicaid P [id number] S [id number] [facility] RAILRO[employer] 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 AND 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 DE O [id number] O [id number] [facility] CHILD CARE COORDINATOR DEPT [id number] SP [id number] [facility] COMMUNITY PLAN [facility] [id number] SP [id number] MEDICAID M [id number] S [id number] MEDICAID M [id number] S [id number] [facility] [employer]RO[employer] WHE[employer]S [employer] 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 DEP [id number] SP [id number] [facility] COMMUNITY PLAN [facility] [id number] SP [id number] SELF PAY [id number] SP [id number] [place] [id number] SP [id number] RANDY [id number] SP [id number] SELF PAY ONLY [id number] SP [id number] [facility] [id number] SP [id number] Self Pay S [id number] S [id number] [facility] [id number] SP [id number] Managed Care - Community Plan [facility] P [id number] S [id number] Problems, Conditions, and Diagnoses Code Display Name Description Problem Type Effective Dates Data Source(s) 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 12/25/2020 12:00:0 0 AM EDT eCW1 ([facility]) 669905813 Undescended testicle Undescended Testicle Problem 11/22/2020 12:00:00 AM EST [facility]AIS ([facility]) 94049337 Hemorrhoids Hemorrhoids Problem 11/22/2020 12:00:00 AM EST [facility]AIS ([facility]) [id number] Undescended testicle Undescended Testicle Problem 11/22/2020 12:00:00 AM EST [facility] ([facility]) 74834075 Hemorrhoids Hemorrhoids Problem 11/22/2020 12:00:00 AM EST [facility] ([facility]) 290703370 Undescended testicle Undescended Testicle Problem 11/22/2020 12:00:00 AM EST [facility] ([facility]) 78272661 Hemorrhoids Hemorrhoids Problem 11/22/2020 12:00:00 AM EST [facility] ([facility]) 538938037 Undescended testicle Undescended Testicle Problem 11/22/2020 12:00:00 AM EST [facility] ([facility]) 28577961 Hemorrhoids Hemorrhoids Problem 11/22/2020 12:00:00 AM EST [facility] ([facility]) 075369281 Low back pain Low Back Pain Problem 10/17/2020 12:00:00 AM EST [facility] ([facility]) 001935626 Low back pain Low Back Pain Problem 10/17/2020 12:00:00 AM EST [facility] ([facility]) 552845531 Low back pain Low Back Pain Problem 10/17/2020 12:00:00 AM EST [facility] ([facility]) 503819264 Low back pain Low Back Pain Problem 10/17/2020 12:00:00 AM EST [facility] ([facility]) 201974811 Low back pain Low Back Pain Problem 10/17/2020 12:00:00 AM EST [facility]AIS ([facility]) F11.20 Opioid dependence, uncomplicated Opioid Use Disorder, Severe Condition 05/22/2020 12:00:00 AM EDT [facility] ([facility]) F15.20 Other stimulant dependence, uncomplicate d Stimulant Use Disorder, Severe: Amphetamine-type substance Condition 05/22/2020 12:00:00 AM EDT [facility] ([facility]) F90.1 Attention-deficit hyperactivity disorder , predominantly hyperactive type Attention-Deficit/Hyperactivity Disorder, Predominantly hyperactive/impulsive presentation Condition 05/22/2020 12:00:00 AM EDT [facility] ([facility]) Surgeries/Procedures Procedure Description Date Indications Data Source(s) Psychiatric Diagnostic Evaluation with Medical Services 07/10/2020 12:00:00 AM EDT - 07/10/2020 12:00:00 AM EDT [facility] ([facility]) Psychiatric Diagnostic Evaluation with Medical Services 07/10/2020 12:00:00 AM EDT [facility] ([facility]) Extended Individual Psychotherapy - 45 min 06/21/2020 12:00:00 AM EDT - 06/21/2020 12:00:00 AM EDT [facility] ([facility]) Extended Individual Psychotherapy - 45 min 0 12:00:00 AM EDT [facility] ([facility]) MHC Telemed E/M Lvl 3--Est pt 05/22/2020 12:00:00 AM EDT - 05/22/2020 12:00:00 AM EDT [facility] ([facility]) MHC Telemed E/M Lvl 3--Est pt 05/22/2020 12:00:00 AM E DT [facility] ([facility]) Results ID Date Data Source [id number] 11/07/2020 09:33:00 AM EST [facility]) Name Value Range Interpretation Code Description Data Sarai rce(s) Supporting Document(s) thyroid stimulating hormone 2.770 uIU/mL 0.358-3.740 Thyroid Stimulating Hormone [facility]) ID Date Data Source [id number] 11/07/2020 09:33:00 AM EST [facility]) Name Value Range Interpretation Code Description Data Sarai rce(s) Supporting Document(s) prostatic specific Ag monitor 0.46 NG/mL < 4.00 Prosta tic Specific Ag Monitor [facility]) ID Date Data Source [id number] 11/07/2020 09:33:00 AM [facility] Name Value Range Interpretation Code Description Data Sarai rce(s) Supporting Document(s) testosterone 377 NG/dL [id number] Testosterone THAIS ([facility]) ID Date Data Source [id number] 11/07/2020 09:33:00 AM EST THAIS ([facility]) Name Value Range Interpretation Code Description Data Sarai rce(s) Supporting Document(s) Cholesterol in LDL [Mass/volume] in Serum or Plasma 120 mg/dL <100 Above high normal LDL Cholesterol THAIS ([facility]) cholesterol level 192 mg/dL <200 Cholesterol Level THAIS ([facility]) triglycerides level 118 mg/dL <150 Triglycerides Le travis THAIS ([facility]) HDL cholesterol 48 mg/dL >40 HDL Cholesterol ATHE ([facility]) non-HDL-C 144 mg/dL Non-hdl-c THAIS ([facility]) cholesterol risk ratio <5 Cholesterol R isk Ratio THAIS ([facility]) ID Date Data Source [id number] 11/07/2020 09:33:00 AM EST MONTROSE ([facility]) Name Value Range Interpretation Code Description Data Sarai rce(s) Supporting Document(s) glucose, fasting 87 mg/dL 70-100 Glucose, Fasting AT [facility]) glomerular filtration rate > 60.0 >60 Glomerula r Filtration Rate THAIS ([facility]) blood urea nitrogen 21 mg/dL 7-18 Above high normal Blood Ure a Nitrogen THAIS ([facility]) creatinine for GFR 1.10 mg/dL 0.70-1.30 Creatinine for GF R THAIS ([facility]) potassium serum 4.5 mEq/L 3.5-5.1 Potassium Serum ATHE NA ([facility]) carbon dioxide level 26 mEq/L 21-32 Carbon Dioxide Level THAIS ([facility]) sodium level 139 mEq/L 136-145 Sodium Level THAIS ([facility]) chloride level 107 mEq/L 98-107 Chloride Level THAIS ([facility]) AST/SGOT 13 U/L 7-37 AST/SGOT THAIS ([facility]) calcium level 9.3 mg/dL 8.5-10.1 Calcium Level THAIS ( [facility]) anion gap 6 mEq/L 8-16 Below low normal Anion Gap THAIS ( [facility]) ALT/SGPT 28 U/L 12-78 ALT/SGPT THAIS ([facility]) alkaline phosphatase 55 U/L 45-117 Alkaline Phosph atase THAIS ([facility]) albumin 4.7 gm/dL 3.2-5.2 Albumin THAIS ([facility]) bilirubin,total 0.5 mg/dL 0.2-1.0 Bilirubin,total ATHE NA ([facility]) total protein 7.4 gm/dL 6.4-8.2 Total Protein THAIS ( [facility]) albumin/globulin ratio Albumin/globu maren Ratio THAIS ([facility]) ID Date Data Source [id number] 11/07/2020 09:33:00 AM EST THAIS ([facility]) Name Value Range Interpretation Code Description Data Sarai rce(s) Supporting Document(s) red blood count 5.42 10 4.30-6.10 Red Blood Count ATHE ([facility]) white blood count 5.9 10 4.0-10.0 White Blood Count THAIS ([facility]) hemoglobin 15.2 g/dL 13.5-17.5 Hemoglobin THAIS ([facility]) hematocrit 45.5 % 42.0-52.0 Hematocrit THAIS ([facility]) mean corpuscular volume 83.9 fL 80.0-96.0 Mean Corpusc ular Volume THAIS ([facility]) mean corpuscular hemoglobin 28.0 pg 27.0-33.0 Mean Cor puscular Hemoglobin THAIS ([facility]) mean corpuscular HGB conc 33.4 g/dL 32.0-36.5 Mean Corpu scular HGB Conc THAIS ([facility]) neutrophils % 46.9 % 36.0-66.0 Neutrophils % THAIS ( [facility]) red cell distribution width 13.0 % 11.5-14.5 Red Cell Distribution Width THAIS ([facility]) platelet count, automated 234 10 150-450 Platelet C ount, Automated THAIS ([facility]) eos % 3.0 % 0.0-3.0 Eos % THAIS ([facility]) lymph % 41.4 % 24.0-44.0 Lymph % THAIS ([facility]) mono % 8.2 % 2.0-8.0 Above high normal [place] % THAIS ([facility]) immature granulocyte % 0.2 % 0-3.0 Immature Gran ulocyte % THAIS ([facility]) baso % 0.3 % 0.0-1.0 Baso % MONTROSE ([facility]) nucleated red blood cell % 0.0 % 0-0 Nucleated Red Blood Cell % THAIS ([facility]) neutrophils # 2.8 10 1.5-8.5 Neutrophils # THAIS ( [facility]) lymph # 2.5 10 1.5-5.0 Lymph # THAIS ([facility]) mono # 0.5 10 0.0-0.8 [place] # THAIS ([facility]) baso # 0.0 10 0.0-0.2 Baso # THAIS ([facility]) eos # 0.2 10 0.0-0.5 Eos # THAIS ([facility]) ID Date Data Source [id number] 11/07/2020 09:33:00 AM EST MONTR[place] ([facility]) Name Value Range Interpretation Code Description Data Sarai rce(s) Supporting Document(s) thyroid stimulating hormone 2.770 uIU/mL 0.358-3.740 Thyroid Stimulating Hormone MONTROSE ([facility]) ID Date Data Source [id number] 11/07/2020 09:33:00 AM EST MONTROSE ([facility]) Name Value Range Interpretation Code Description Data Sarai rce(s) Supporting Document(s) prostatic specific Ag monitor 0.46 NG/mL < 4.00 Prosta tic Specific Ag Monitor THAIS ([facility]) ID Date Data Source [id number] 11/07/2020 09:33:00 AM EST THAIS ([facility]) Name Value Range Interpretation Code Description Data Sarai rce(s) Supporting Document(s) testosterone 377 NG/dL [id number] Testosterone THAIS ([facility]) ID Date Data Source [id number] 11/07/2020 09:33:00 AM EST THAIS ([facility]) Name Value Range Interpretation Code Description Data Sarai rce(s) Supporting Document(s) triglycerides level 118 mg/dL <150 Triglycerides Le travis THAIS ([facility]) cholesterol level 192 mg/dL <200 Cholesterol Level THAIS ([facility]) non-HDL-C 144 mg/dL Non-hdl-c THAIS ([facility]) Cholesterol in LDL [Mass/volume] in Serum or Plasma 120 mg/dL <100 Above high normal LDL Cholesterol THAIS ([facility]) HDL cholesterol 48 mg/dL >40 HDL Cholesterol ATHE NA ([facility]) cholesterol risk ratio <5 Cholesterol R isk Ratio THAIS ([facility]) ID Date Data Source [id number] 11/07/2020 09:33:00 AM EST THAIS ([facility]) Name Value Range Interpretation Code Description Data Sarai rce(s) Supporting Document(s) glucose, fasting 87 mg/dL 70-100 Glucose, Fasting AT [facility] ([facility]) glomerular filtration rate > 60.0 >60 Glomerula r Filtration Rate TAHIS ([facility]) creatinine for GFR 1.10 mg/dL 0.70-1.30 Creatinine for GF R THAIS ([facility]) blood urea nitrogen 21 mg/dL 7-18 Above high normal Blood Ure a Nitrogen THAIS ([facility]) chloride level 107 mEq/L 98-107 Chloride Level THAIS ([facility]) sodium level 139 mEq/L 136-145 Sodium Level THAIS ([facility]) anion gap 6 mEq/L 8-16 Below low normal Anion Gap THAIS ( [facility]) potassium serum 4.5 mEq/L 3.5-5.1 Potassium Serum ATHE ([facility]) carbon dioxide level 26 mEq/L 21-32 Carbon Dioxide Level THAIS ([facility]) bilirubin,total 0.5 mg/dL 0.2-1.0 Bilirubin,total ATHE ([facility]) AST/SGOT 13 U/L 7-37 AST/SGOT THAIS ([facility]) alkaline phosphatase 55 U/L 45-117 Alkaline Phosph atase THAIS ([facility]) calcium level 9.3 mg/dL 8.5-10.1 Calcium Level THAIS ( [facility]) ALT/SGPT 28 U/L 12-78 ALT/SGPT THAIS ([facility]) albumin/globulin ratio Albumin/globu maren Ratio THAIS ([facility]) albumin 4.7 gm/dL 3.2-5.2 Albumin THAIS ([facility]) total protein 7.4 gm/dL 6.4-8.2 Total Protein THAIS ( [facility]) ID Date Data Source [id number] 11/07/2020 09:33:00 AM EST THAIS ([facility]) Name Value Range Interpretation Code Description Data Sarai rce(s) Supporting Document(s) white blood count 5.9 10 4.0-10.0 White Blood Count THAIS ([facility]) red blood count 5.42 10 4.30-6.10 Red Blood Count ATHE ([facility]) mean corpuscular volume 83.9 fL 80.0-96.0 Mean Corpusc ular Volume THAIS ([facility]) hematocrit 45.5 % 42.0-52.0 Hematocrit THAIS ([facility]) hemoglobin 15.2 g/dL 13.5-17.5 Hemoglobin THAIS ([facility]) mean corpuscular hemoglobin 28.0 pg 27.0-33.0 Mean Cor puscular Hemoglobin THAIS ([facility]) mean corpuscular HGB conc 33.4 g/dL 32.0-36.5 Mean Corpu scular HGB Conc THAIS ([facility]) red cell distribution width 13.0 % 11.5-14.5 Red Cell Distribution Width THAIS ([facility]) platelet count, automated 234 10 150-450 Platelet C ount, Automated THAIS ([facility]) baso % 0.3 % 0.0-1.0 Baso % THAIS ([facility]) neutrophils % 46.9 % 36.0-66.0 Neutrophils % MONTR[place] ( [facility]) mono % 8.2 % 2.0-8.0 Above high normal [place] % MON[facility] ([facility]) lymph % 41.4 % 24.0-44.0 Lymph % [facility] ([facility]) eos % 3.0 % 0.0-3.0 Eos % [place] ([facility]) neutrophils # 2.8 10 1.5-8.5 Neutrophils # MONTR[place] ( [facility]) nucleated red blood cell % 0.0 % 0-0 Nucleated Red Blood Cell % [facility] ([facility]) immature granulocyte % 0.2 % 0-3.0 Immature Gran ulocyte % [place] ([facility]) lymph # 2.5 10 1.5-5.0 Lymph # [place] ([facility]) eos # 0.2 10 0.0-0.5 Eos # THAIS ([facility]) baso # 0.0 10 0.0-0.2 Baso # THAIS ([facility]) mono # 0.5 10 0.0-0.8 [place] # MONTROSE ([facility]) ID Date Data Source [id number] 11/07/2020 09:33:00 AM EST [place] ([facility]) Name Value Range Interpretation Code Description Data Sarai rce(s) Supporting Document(s) thyroid stimulating hormone 2.770 uIU/mL 0.358-3.740 Thyroid Stimulating Hormone THAIS ([facility]) ID Date Data Source [id number] 11/07/2020 09:33:00 AM EST THAIS ([facility]) Name Value Range Interpretation Code Description Data Sarai rce(s) Supporting Document(s) prostatic specific Ag monitor 0.46 NG/mL < 4.00 Prosta tic Specific Ag Monitor THAIS ([facility]) ID Date Data Source [id number] 11/07/2020 09:33:00 AM EST THAIS ([facility]) Name Value Range Interpretation Code Description Data Sarai rce(s) Supporting Document(s) testosterone 377 NG/dL [id number] Testosterone THAIS (No [facility]) ID Date Data Source [id number] 11/07/2020 09:33:00 AM EST THAIS ([facility]) Name Value Range Interpretation Code Description Data Sarai rce(s) Supporting Document(s) cholesterol level 192 mg/dL <200 Cholesterol Level THAIS ([facility]) triglycerides level 118 mg/dL <150 Triglycerides Le travis THAIS ([facility]) non-HDL-C 144 mg/dL Non-hdl-c THAIS ([facility]) HDL cholesterol 48 mg/dL >40 HDL Cholesterol ATHE NA ([facility]) Cholesterol in LDL [Mass/volume] in Serum or Plasma 120 mg/dL <100 Above high normal LDL Cholesterol THAIS ([facility]) cholesterol risk ratio <5 Cholesterol R isk Ratio THAIS ([facility]) ID Date Data Source [id number] 11/07/2020 09:33:00 AM EST THAIS ([facility]) Name Value Range Interpretation Code Description Data Sarai rce(s) Supporting Document(s) glucose, fasting 87 mg/dL 70-100 Glucose, Fasting AT [facility]) glomerular filtration rate > 60.0 >60 Glomerula r Filtration Rate THAIS ([facility]) blood urea nitrogen 21 mg/dL 7-18 Above high normal Blood Ure a Nitrogen THAIS ([facility]) sodium level 139 mEq/L 136-145 Sodium Level THAIS ([facility]) creatinine for GFR 1.10 mg/dL 0.70-1.30 Creatinine for GF R THAIS ([facility]) potassium serum 4.5 mEq/L 3.5-5.1 Potassium Serum ATHE NA ([facility]) carbon dioxide level 26 mEq/L 21-32 Carbon Dioxide Level THAIS ([facility]) calcium level 9.3 mg/dL 8.5-10.1 Calcium Level THAIS ( [facility]) chloride level 107 mEq/L 98-107 Chloride Level THAIS ([facility]) anion gap 6 mEq/L 8-16 Below low normal Anion Gap THAIS ( [facility]) AST/SGOT 13 U/L 7-37 AST/SGOT THAIS ([facility]) bilirubin,total 0.5 mg/dL 0.2-1.0 Bilirubin,total ATHE ([facility]) alkaline phosphatase 55 U/L 45-117 Alkaline Phosph atase THAIS ([facility]) ALT/SGPT 28 U/L 12-78 ALT/SGPT THAIS ([facility]) albumin/globulin ratio Albumin/globu maren Ratio THAIS ([facility]) total protein 7.4 gm/dL 6.4-8.2 Total Protein THAIS ( [facility]) albumin 4.7 gm/dL 3.2-5.2 Albumin THAIS ([facility]) ID Date Data Source [id number] 11/07/2020 09:33:00 AM EST THAIS ([facility]) Name Value Range Interpretation Code Description Data Sarai rce(s) Supporting Document(s) white blood count 5.9 10 4.0-10.0 White Blood Count THAIS ([facility]) red blood count 5.42 10 4.30-6.10 Red Blood Count ATHE ([facility]) hemoglobin 15.2 g/dL 13.5-17.5 Hemoglobin THAIS ([facility]) mean corpuscular hemoglobin 28.0 pg 27.0-33.0 Mean Cor puscular Hemoglobin THAIS ([facility]) hematocrit 45.5 % 42.0-52.0 Hematocrit THAIS ([facility]) mean corpuscular volume 83.9 fL 80.0-96.0 Mean Corpusc ular Volume THAIS ([facility]) neutrophils % 46.9 % 36.0-66.0 Neutrophils % THAIS ( [facility]) platelet count, automated 234 10 150-450 Platelet C ount, Automated THAIS ([facility]) red cell distribution width 13.0 % 11.5-14.5 Red Cell Distribution Width THAIS ([facility]) mean corpuscular HGB conc 33.4 g/dL 32.0-36.5 Mean Corpu scular HGB Conc THAIS ([facility]) baso % 0.3 % 0.0-1.0 Baso % THAIS ([facility]) mono % 8.2 % 2.0-8.0 Above high normal [place] % THAIS ([facility]) eos % 3.0 % 0.0-3.0 Eos % THAIS ([facility]) lymph % 41.4 % 24.0-44.0 Lymph % [place] ([facility]) neutrophils # 2.8 10 1.5-8.5 Neutrophils # [place] ( [facility]) immature granulocyte % 0.2 % 0-3.0 Immature Gran ulocyte % THAIS ([facility]) nucleated red blood cell % 0.0 % 0-0 Nucleated Red Blood Cell % THAIS ([facility]) mono # 0.5 10 0.0-0.8 [place] # THAIS ([facility]) lymph # 2.5 10 1.5-5.0 Lymph # THAIS ([facility]) baso # 0.0 10 0.0-0.2 Baso # THAIS ([facility]) eos # 0.2 10 0.0-0.5 Eos # THAIS ([facility]) ID Date Data Source [id number] 11/07/2020 09:33:00 AM EST THAIS ([facility]) Name Value Range Interpretation Code Description Data Sarai rce(s) Supporting Document(s) thyroid stimulating hormone 2.770 uIU/mL 0.358-3.740 Thyroid Stimulating Hormone THAIS ([facility]) ID Date Data Source [id number] 11/07/2020 09:33:00 AM EST THAIS ([facility]) Name Value Range Interpretation Code Description Data Sarai rce(s) Supporting Document(s) prostatic specific Ag monitor 0.46 NG/mL < 4.00 Prosta tic Specific Ag Monitor THAIS ([facility]) ID Date Data Source [id number] 11/07/2020 09:33:00 AM EST THAIS ([facility]) Name Value Range Interpretation Code Description Data Sarai rce(s) Supporting Document(s) testosterone 377 NG/dL [id number] Testosterone THAIS ([facility]) ID Date Data Source [id number] 11/07/2020 09:33:00 AM EST THAIS ([facility]) Name Value Range Interpretation Code Description Data Sarai rce(s) Supporting Document(s) cholesterol level 192 mg/dL <200 Cholesterol Level THAIS ([facility]) triglycerides level 118 mg/dL <150 Triglycerides [place] travis THAIS ([facility]) Cholesterol in LDL [Mass/volume] in Serum or Plasma 120 mg/dL <100 Above high normal LDL Cholesterol THAIS ([facility]) HDL cholesterol 48 mg/dL >40 HDL Cholesterol ATHE NA ([facility]) cholesterol risk ratio <5 Cholesterol R isk Ratio THAIS ([facility]) non-HDL-C 144 mg/dL Non-hdl-c THAIS ([facility]) ID Date Data Source [id number] 11/07/2020 09:33:00 AM EST THAIS ([facility]) Name Value Range Interpretation Code Description Data Sarai rce(s) Supporting Document(s) glucose, fasting 87 mg/dL 70-100 Glucose, Fasting AT [place] ([facility]) blood urea nitrogen 21 mg/dL 7-18 Above high normal Blood Ure a Nitrogen THAIS ([facility]) creatinine for GFR 1.10 mg/dL 0.70-1.30 Creatinine for GF R THAIS ([facility]) glomerular filtration rate > 60.0 >60 Glomerula r Filtration Rate THAIS ([facility]) sodium level 139 mEq/L 136-145 Sodium Level THAIS ([facility]) carbon dioxide level 26 mEq/L 21-32 Carbon Dioxide Level THAIS ([facility]) potassium serum 4.5 mEq/L 3.5-5.1 Potassium Serum ATHE NA ([facility]) chloride level 107 mEq/L 98-107 Chloride Level THAIS ([facility]) anion gap 6 mEq/L 8-16 Below low normal Anion Gap THAIS ( [facility]) calcium level 9.3 mg/dL 8.5-10.1 Calcium Level THAIS ( [facility]) ALT/SGPT 28 U/L 12-78 ALT/SGPT THAIS ([facility]) AST/SGOT 13 U/L 7-37 AST/SGOT THAIS ([facility]) bilirubin,total 0.5 mg/dL 0.2-1.0 Bilirubin,total ATHE ([facility]) alkaline phosphatase 55 U/L 45-117 Alkaline Phosph atase THAIS ([facility]) total protein 7.4 gm/dL 6.4-8.2 Total Protein THAIS ( [facility]) albumin 4.7 gm/dL 3.2-5.2 Albumin THAIS ([facility]) albumin/globulin ratio Albumin/globu maren Ratio THAIS ([facility]) ID Date Data Source [id number] 11/07/2020 09:33:00 AM EST THAIS ([facility]) Name Value Range Interpretation Code Description Data Sarai rce(s) Supporting Document(s) white blood count 5.9 10 4.0-10.0 White Blood Count THAIS ([facility]) hemoglobin 15.2 g/dL 13.5-17.5 Hemoglobin THAIS ([facility]) red blood count 5.42 10 4.30-6.10 Red Blood Count ATHE NA ([facility]) mean corpuscular HGB conc 33.4 g/dL 32.0-36.5 Mean Corpu scular HGB Conc THAIS ([facility]) mean corpuscular volume 83.9 fL 80.0-96.0 Mean Corpusc ular Volume THAIS ([facility]) mean corpuscular hemoglobin 28.0 pg 27.0-33.0 Mean Cor puscular Hemoglobin THAIS ([facility]) hematocrit 45.5 % 42.0-52.0 Hematocrit THAIS ([facility]) red cell distribution width 13.0 % 11.5-14.5 Red Cell Distribution Width THAIS ([facility]) platelet count, automated 234 10 150-450 Platelet C ount, Automated THAIS ([facility]) neutrophils % 46.9 % 36.0-66.0 Neutrophils % MON[place] ( [facility]) mono % 8.2 % 2.0-8.0 Above high normal [place] % [facility] ([facility]) lymph % 41.4 % 24.0-44.0 Lymph % THAIS ([facility]) eos % 3.0 % 0.0-3.0 Eos % THAIS ([facility]) baso % 0.3 % 0.0-1.0 Baso % [place] ([facility]) immature granulocyte % 0.2 % 0-3.0 Immature Gran ulocyte % THAIS ([facility]) nucleated red blood cell % 0.0 % 0-0 Nucleated Red Blood Cell % THAIS ([facility]) mono # 0.5 10 0.0-0.8 [place] # THAIS ([facility]) neutrophils # 2.8 10 1.5-8.5 Neutrophils # THAIS ( [facility]) lymph # 2.5 10 1.5-5.0 Lymph # THAIS ([facility]) eos # 0.2 10 0.0-0.5 Eos # THAIS ([facility]) baso # 0.0 10 0.0-0.2 Baso # THAIS ([facility]) ID Date Data Source [id number] 07/08/2020 10:48:00 AM EDT MEDERICK (Vick Joiner MD) Name Value Range Interpretation Code Description Data Sarai rce(s) Supporting Document(s) Hepatitis C virus RNA [Units/volume] (vi ral load) in Serum or Plasma by Probe with amplification Laboratory test result Normal (applies t o non-numeric results) MEDREICK (Vick Joiner MD) Negative: HCV RNA Not Detected ID Date Data Source [id number] 07/08/2020 10:48:00 AM EDT RISA (Vick Joiner MD) Name Value Range Interpretation Code Description Data Sarai rce(s) Supporting Document(s) Laboratory test finding (navigational concept) 0.02 0 .00-0.21 Normal (applies to non-numeric results) MEDENT (Vick Joiner MD) Laboratory test finding (navigational concept) Laboratory test r esult Normal (applies to non-numeric results) MEDERICK (Vick Joiner MD) F0 - No fibrosis Laboratory test finding (navigational concept) 0.09 0 .00-0.17 Normal (applies to non-numeric results) MEDENT (Vick [...] 0 -65 Normal (applies to non-numeric results) MEDENT (Vick Joiner MD) Laboratory test finding (navigational concept) 163 mg/dL 1 01-178 Normal (applies to non-numeric results) MEDENT (Vick Joiner MD) Laboratory test finding (navigational concept) 0.2 mg/dL 0 .0-1.2 Normal (applies to non-numeric results) RISA (Vick Joiner MD) Laboratory test finding (navigational concept) 29 IU/L 0 -55 Normal (applies to non-numeric results) MEDENT (Vick Joiner MD) Laboratory test finding (navigational concept) Laboratory test r esult Normal (applies to non-numeric results) MEDENT (Vick Joiner MD) <content>.</content>
<content><0.21 = Stage [...] to non-numeric results) MEDERICK (Vick Joiner MD) . Quantitative results of [...] developed and its performance characteristics [facility] by [facility]. It has not been cleared or approved by the Food and Drug Administration. The FDA has determined that such clearance or approval is not necessary. . For questions regarding this report please contact customer service at . ID Date Data Source [id number] 07/08/2020 10:48:00 AM EDT MEDENT (Vick Joiner MD) Name Value Range Interpretation Code Description Data Sarai rce(s) Supporting Document(s) Hepatitis A virus IgG Ab [Units/volume] in Serum Laboratory test result Abnormal (applies to non-numeric results) MEDENT (Vick woods MD) Performed at: [address] [id number] [employer]: Yenni Ramos MD, Phone: [phone] Performed at: [address] [id number] [employer]otype: Ashley Funes MD, Phone: [phone] ID Date Data Source [id number] 07/08/2020 10:48:00 AM EDT MEDENT (Vick Joiner [...] developed and its performance characteristics determined by [facility]. It has not been cleared or approved by the U.[place]. Food and Drug Administration. . The FDA has determined that such clearance or approval is not necessary. This test is used for clinical purposes. It should not be regarded as investigational or for research. ID Date Data Source [id number] 07/08/2020 10:48:00 AM EDT MEDENT (Vick Joiner [...] (Vick Joiner MD) ID Date Data Source [id number] 07/02/2020 11:46:00 AM EDT MEDENT (Vick Joiner MD) Name Value Range Interpretation Code Description Data Sarai rce(s) Supporting Document(s) Hepatitis C virus RNA [Units/volume] (vi ral load) in Serum or Plasma by Probe with amplification Laboratory test result Normal (applies t o non-numeric results) MEDENT (Vick Joiner MD) Negative: HCV RNA Not Detected Performed at: [address] [id number] [address] [employer] Linotype: Yenni Ramos MD, Phone: [phone] ID Date Data Source [id number] 07/02/2020 11:46:00 AM EDT MEDENT (Vick Joiner MD) Name Value Range Interpretation Code Description Data Sarai rce(s) Supporting Document(s) Laboratory test finding (navigational concept) Laboratory test r esult Above high normal MEDENT (Vick Joiner MD) <content>This screening test for Hepatit is C Virus was above the 1.0</content>
<content>cutoff index value and will be sent to reference lab</content>
<content>[facility], [address] [place],</content>
<content>[place] [address] for Hep C RNA TINA testing to [...] to non-numeric results) MEDERICK (Vick Joiner MD) ID Date Data Source [id number] 07/02/2020 11:46:00 AM EDT MEDERICK (Vick Joiner MD) Name Value Range Interpretation Code Description Data Sarai rce(s) Supporting Document(s) Testosterone [Mass/volume] in Serum or Plasma 329 ng/dL 24 1-827 Normal (applies to non-numeric results) MEDENT (Vick Joiner MD) NORMAL RANGES ARE FOR ADULT FEMALES (OVE R 15 YRS) AND MALES (OVER 19 YRS). FOR PEDIATRIC RANGES PLE ASE CONSULT LITERATURE. ID Date Data Source [id number] 07/02/2020 11:46:00 AM EDT RISA (Vick Joiner MD) Name Value Range Interpretation Code Description Data Sarai rce(s) Supporting Document(s) Laboratory test finding (navigational concept) 100 mg/dL 7 0-100 Normal (applies to non-numeric results) MEDENT (Vick Joiner MD) Laboratory test finding (navigational concept) 1.16 mg/dL 0 .70-1.30 Normal (applies to non-numeric results) MEDERICK (Vick Joiner MD) Laboratory test finding (navigational concept) 18 mg/dL 7 -18 Normal (applies to non-numeric results) MEDERICK (Vick [...] Little GFR Left</content>
<content>ESRD GFR <15 on COPY COORDINATOR</content>
<content></content> Laboratory test finding (navigational concept) 4.1 [...] 1 2-78 Normal (applies to non-numeric results) MEDENT (Vick [...] (Vick Joiner MD) ID Date Data Source [id number] 07/02/2020 11:46:00 AM EDT MEDENT (Vick Joiner [...] 3 2.0-36.5 Normal (applies to non-numeric results) MEDENT (Vick Joiner MD) Laboratory test finding (navigational concept) 26.9 pg 2 7.0-33.0 Below low normal MEDENT (Vick Joiner MD) Laboratory test finding (navigational concept) 81.6 fl 8 0.0-96.0 Normal (applies to non-numeric results) MEDENT (Vick [...] 1 .5-8.5 Normal (applies to non-numeric results) MEDENT (Vick Joiner MD) Laboratory test finding (navigational concept) 0.6 10 0 .0-0.8 Normal (applies to non-numeric results) MEDENT (Vick Joiner MD) Laboratory test finding (navigational concept) 0.0 10 0 .0-0.2 Normal (applies to non-numeric results) MEDENT (Vick Joiner MD) Laboratory test finding (navigational concept) 0.1 10 0 .0-0.5 Normal (applies to non-numeric results) MEDERICK (Vick Joiner MD) ID Date Data Source [id number] 07/02/2020 11:44:00 AM EDT MEDERICK (Vick Joiner [...] r esult Normal (applies to non-numeric results) JWENT (Vick Joiner MD) Laboratory test finding (navigational concept) 0.2 mg/dL 0 .0-2.0 Normal (applies to non-numeric results) JWENT (Vick [...] 0 -3 Normal (applies to non-numeric results) RISA (Vick Joiner MD) Laboratory test finding (navigational concept) 3 /HPF 0 -3 Normal (applies to non-numeric results) RISA (Vick [...] EDT Former Smoker completed Former Smoker eCW1 ([facility]) Smoking 07/10/2020 12:00:00 AM EDT Unknown if ever smoked comp leted Unknown if ever smoked [facility] ([facility]) Smoking 06/21/2020 12:00:00 AM EDT Unknown if ever smoked comp leted Unknown if ever smoked [facility] ([facility]) Smoking 05/22/2020 12:00:00 AM EDT Unknown if ever smoked comp leted Unknown if ever smoked [facility] ([facility]) Vital Signs ID Date Data Source [id number] Name Value Range Interpretation Code Description Data Source(s) Body height 69 [in_i] 69 [in_i] THAIS ([facility]) Diastolic blood pressure 84 mm[Hg] 84 mm[Hg] THAIS ([facility]) Body mass index (BMI) [Ratio] 30.2 kg/m2 30.2 k g/m2 THAIS ([facility]) Systolic blood pressure 134 mm[Hg] 134 mm[Hg] A THENA ([facility]) Body weight 3272 [oz_av] 3272 [oz_av] THAIS ([facility]) Diastolic blood pressure 99 mm[Hg] 99 mm[Hg] THAIS ([facility]) Body height 69 [in_i] 69 [in_i] THAIS ([facility]) Body mass index (BMI) [Ratio] 29.9 kg/m2 29.9 k g/m2 THAIS ([facility]) Systolic blood pressure 138 mm[Hg] 138 mm[Hg] A THENA ([facility]) Body weight 3236 [oz_av] 3236 [oz_av] THAIS ([facility]) Body mass index (BMI) [Ratio] 29.9 kg/m2 29.9 k g/m2 THAIS ([facility]) Systolic blood pressure 138 mm[Hg] 138 mm[Hg] A THENA ([facility]) Diastolic blood pressure 99 mm[Hg] 99 mm[Hg] THAIS ([facility]) Body height 69 [in_i] 69 [in_i] THAIS ([facility]) Body weight 3236 [oz_av] 3236 [oz_av] THAIS ([facility]) Body weight 210.4 [lb_av] 210.4 [lb_av] eCW1 ([facility]) Body height 69 [in_i] 69 [in_i] eCW1 ([facility]) Body mass index (BMI) [Ratio] 30 kg/m2 30 kg/ m2 [facility] ([facility]) Heart rate 57 /min 57 /min eCW1 ([facility]) Respiratory rate 18 /min 18 /min eCW1 ([facility]) Body temperature 97.2 [degF] 97.2 [degF] eCW1 ( [facility]) Systolic blood pressure 128 mm[Hg] 128 mm[Hg] e CW1 ([facility]) Diastolic blood pressure 76 mm[Hg] 76 mm[Hg] eCW1 ([facility]) Diastolic blood pressure 73 mm[Hg] 73 mm[Hg] THAIS ([facility]) Body height 69 [in_i] 69 [in_i] THAIS ([facility]) Body mass index (BMI) [Ratio] 32.8 kg/m2 32.8 k g/m2 THAIS ([facility]) Systolic blood pressure 128 mm[Hg] 128 mm[Hg] A THENA ([facility]) Body weight 3554 [oz_av] 3554 [oz_av] THAIS ([facility]) Diastolic blood pressure 73 mm[Hg] 73 mm[Hg] THAIS ([facility]) Body height 69 [in_i] 69 [in_i] THAIS ([facility]) Body mass index (BMI) [Ratio] 32.8 kg/m2 32.8 k g/m2 THAIS ([facility]) Systolic blood pressure 128 mm[Hg] 128 mm[Hg] A THENA ([facility]) Body weight 3554 [oz_av] 3554 [oz_av] THAIS ([facility]) Diastolic blood pressure 73 mm[Hg] 73 mm[Hg] THAIS ([facility]) Body height 69 [in_i] 69 [in_i] THAIS ([facility]) Body mass index (BMI) [Ratio] 32.8 kg/m2 32.8 k g/m2 THAIS ([facility]) Systolic blood pressure 128 mm[Hg] 128 mm[Hg] A THENA ([facility]) Body weight 3554 [oz_av] 3554 [oz_av] THAIS ([facility]) Diastolic blood pressure 73 mm[Hg] 73 mm[Hg] THAIS ([facility]) Body height 69 [in_i] 69 [in_i] THAIS ([facility]) Body mass index (BMI) [Ratio] 32.8 kg/m2 32.8 k g/m2 THAIS ([facility]) Systolic blood pressure 128 mm[Hg] 128 mm[Hg] A THENA ([facility]) Body weight 3554 [oz_av] 3554 [oz_av] THAIS ([facility]) Diastolic blood pressure 77 mm[Hg] 77 mm[Hg] THAIS ([facility]) Body height 69 [in_i] 69 [in_i] THAIS ([facility]) Body mass index (BMI) [Ratio] 32.2 kg/m2 32.2 k g/m2 THAIS ([facility]) Body weight 3490 [oz_av] 3490 [oz_av] THAIS ([facility]) Systolic blood pressure 146 mm[Hg] 146 mm[Hg] [facility] Diastolic blood pressure 77 mm[Hg] 77 mm[Hg] THAIS ([facility]) Body height 69 [in_i] 69 [in_i] THAIS ([facility]) Body mass index (BMI) [Ratio] 32.2 kg/m2 32.2 k g/m2 THAIS ([facility]) Systolic blood pressure 146 mm[Hg] 146 mm[Hg] A THENA ([facility]) Body weight 3490 [oz_av] 3490 [oz_av] THAIS ([facility]) Diastolic blood pressure 77 mm[Hg] 77 mm[Hg] THAIS ([facility]) Body height 69 [in_i] 69 [in_i] THAIS ([facility]) Body mass index (BMI) [Ratio] 32.2 kg/m2 32.2 k g/m2 THAIS ([facility]) Systolic blood pressure 146 mm[Hg] 146 mm[Hg] A THENA ([facility]) Body weight 3490 [oz_av] 3490 [oz_av] THAIS ([facility]) Body mass index (BMI) [Ratio] 32.2 kg/m2 32.2 k g/m2 THAIS ([facility]) Systolic blood pressure 146 mm[Hg] 146 mm[Hg] A THENA ([facility]) Body weight 3490 [oz_av] 3490 [oz_av] THAIS ([facility]) Diastolic blood pressure 77 mm[Hg] 77 mm[Hg] THAIS ([facility]) Body height 69 [in_i] 69 [in_i] THAIS ([facility]) Diastolic blood pressure 77 mm[Hg] 77 mm[Hg] THAIS ([facility]) Body height 69 [in_i] 69 [in_i] THAIS ([facility]) Body mass index (BMI) [Ratio] 32.2 kg/m2 32.2 k g/m2 THAIS ([facility]) Systolic blood pressure 146 mm[Hg] 146 mm[Hg] A THENA ([facility]) Body weight 3490 [oz_av] 3490 [oz_av] THAIS ([facility]) Body height 0.00 in Normal (applies to non-numeric resu lts) [facility]) Body weight Measured 0.00 lbs Normal (applies to n on-numeric results) 0.00 lbs [facility] ([facility]) Body mass index (BMI) [Ratio] 0.00 kg/m2 No rmal (applies to non-numeric results) 0.00 kg/m2 [facility] ([facility]) Systolic blood pressure 0 mm[Hg] Normal (applies t o non-numeric results) 0 mm[Hg] [facility] ([facility]) Diastolic blood pressure 0 mm[Hg] Normal (applies to non-numeric results) 0 mm[Hg] [facility] ([facility]) Systolic blood pressure 143 mm[Hg] 143 mm[Hg] M EDENT ([facility]) Diastolic blood pressure 84 mm[Hg] 84 mm[Hg] MEDENT ([facility]) Heart rate 70 /min 70 /min [facility] Patient Treatment Plan of Care Planned Activity Planned Date Details Description Data Source (s) Naltrexone 112 MG/ML [facility] Oral Tablet [facility]) Azithromycin 500 MG Oral Tablet THAIS ([facility]) Azithromycin 500 MG Oral Tablet THAIS [facility]) Azithromycin 500 MG Oral Tablet THAIS [facility]) Naltrexone 112 MG/ML Injectable Suspension [facility] Azith[facility] 500 MG Oral Tablet TH[facility]IS [facility])
[2021-06-25] MEDS ORDERED: CEPH500C PO (16:03)
== END 2021-06-25 16:17 | disposition home or self-care (01) ==
LOC: M ED 12:08
DX: S61.412A Laceration without foreign body of left hand, initial encounter (principal); W45.0XXA Nail entering through skin, initial encounter; Y92.099 Unspecified place in other non-institutional residence as the place of occurrence of the external cause; Y93.9 Activity, unspecified; Y99.9 Unspecified external cause status

== ENCOUNTER 2022-02-19 12:09 | Emergency (ER) | payer OTHER ==
[~2022-02-19] VITALS: Ht 172.7 cm; Wt 93.5 kg
[~2022-02-19 12:09] MED LIST changes: +CEPH500C PO; +NALT50TA4; +SERT50TA29
[2022-02-19 12:11] VITALS: BP 142/99
[2022-02-19] MEDS ORDERED: SERTRALINE (12:18)
[2022-02-19] MEDS ORDERED: ATOM25CA7 (12:18)
[2022-02-19] MEDS ORDERED: GUAN1TAB16 (12:18)
== END 2022-02-19 14:20 | disposition left against medical advice (07) ==
LOC: M ED 12:09
DX: Z53.21 Procedure and treatment not carried out due to patient leaving prior to being seen by health care provider (principal)

== ENCOUNTER 2023-02-13 18:56 | Emergency (ER) | payer OTHER, SELFPAY ==
[~2023-02-13 18:56] MED LIST changes: +ATOM25CA7; +GUAN1TAB16; +SERTRALINE
[2023-02-13 19:55] LABS: BASO % 0.1 % (0.0-1.0); EOS # 0.3 10^3/uL (0.0-0.5); EOS % 3.6 % (0.0-3.0); HEMATOCRIT 44.6 % (42.0-52.0); HEMOGLOBIN 15.3 g/dl (13.5-17.5); LYMPH # 1.1 10^3/uL (1.5-5.0); LYMPH % 12.1 % (24.0-44.0); MEAN CORPUSCULAR HEMOGLOBIN 27.9 pg (27.0-33.0); MEAN CORPUSCULAR HGB CONC 34.3 g/dl (32.0-36.5); MEAN CORPUSCULAR VOLUME 81.2 fl (80.0-96.0); MONO # 0.9 10^3/uL (0.0-0.8); MONO % 10.2 % (2.0-8.0); NEUTROPHILS # 6.5 10^3/uL (1.5-8.5); NEUTROPHILS % 73.7 % (36.0-66.0); PLATELET COUNT, AUTOMATED 244 10^3/uL (150-450); RED BLOOD COUNT 5.49 10^6/uL (4.30-6.10); WHITE BLOOD COUNT 8.8 10^3/uL (4.0-10.0)
[2023-02-13 20:18] LABS: LIPASE 58 U/L (12-53)
[2023-02-13 20:20] LABS: ALBUMIN 4.2 G/DL (3.2-5.2); ALKALINE PHOSPHATASE 73 U/L (46-116); ALT/SGPT 18 U/L (7.0-40); AST/SGOT 15 U/L (<34); BILIRUBIN,DIRECT 0.2 MG/DL (<0.4); BILIRUBIN,TOTAL 0.6 MG/DL (0.3-1.2); BLOOD UREA NITROGEN 13 MG/DL (9-23); CALCIUM LEVEL 8.5 MG/DL (8.5-10.1); CARBON DIOXIDE LEVEL 26 MMOL/L (20-31); CHLORIDE LEVEL 104 MMOL/L (98-107); GLOMERULAR FILTRATION RATE > 60.0 (>60); GLUCOSE, FASTING 89 MG/DL (60-100); POTASSIUM SERUM 3.4 MMOL/L (3.5-5.1); SODIUM LEVEL 139 MMOL/L (136-145); TOTAL PROTEIN 6.9 G/DL (5.7-8.2)
[2023-02-13] MEDS ORDERED: ONDANSETRON 4MG ORAL DISINTEGRATING TAB PO ONE (21:00)
[2023-02-13] MEDS ORDERED: DICYCLOMINE 10 MG CAP PO ONE (21:00)
[2023-02-13] MEDS ORDERED: POTASSIUM CHLORIDE 10MEQ SR TABLET PO ONE (21:05)
[2023-02-13] MEDS ORDERED: DICY10CA13 PO (21:07)
[2023-02-13] MEDS ORDERED: ONDA4TAB6 PO (21:07)
[2023-02-13 21:13] VITALS: TEMP 99.4
[2023-02-13 21:24] VITALS: BP 144/83; O2SAT 98
== END 2023-02-13 21:24 | disposition home or self-care (01) ==
LOC: M ED 18:56
DX: R10.9 Unspecified abdominal pain (principal); R11.2 Nausea with vomiting, unspecified; R19.7 Diarrhea, unspecified; I10 Essential (primary) hypertension; F17.200 Nicotine dependence, unspecified, uncomplicated; F19.10 Other psychoactive substance abuse, uncomplicated; Z79.899 Other long term (current) drug therapy

== ENCOUNTER → 2023-07-24 | Outpatient (REF) | payer OTHER ==
[~2023-07-24] MED LIST changes: +DICY-61 PO; +ONDA4TAB6 PO
[2023-07-24 19:52] LABS: CHLAMYDIA DNA AMPLIFICATION POSITIVE (NEGATIVE); GC DNA AMPLIFICATION POSITIVE (NEGATIVE)
== END ==
LOC: M LAB REF 17:55
PROVIDERS: ATTEND Physician Assistant
DX: R30.0 Dysuria (principal)